=== PATIENT | male | born 1965 | race Two or more races ===

== ENCOUNTER → 2018-06-06 | Outpatient (CLI) | payer OTHER | LOC: M PAIN 13:30 | DX: M96.1 Postlaminectomy syndrome, not elsewhere classified (principal); E11.9 Type 2 diabetes mellitus without complications; E78.00 Pure hypercholesterolemia, unspecified; K21.9 Gastro-esophageal reflux disease without esophagitis; J30.9 Allergic rhinitis, unspecified; Z79.4 Long term (current) use of insulin; Z79.899 Other long term (current) drug therapy; Z87.891 Personal history of nicotine dependence; Z98.84 Bariatric surgery status | CPT/HCPCS: G0463 ==

== ENCOUNTER → 2018-07-04 | Outpatient (CLI) | payer OTHER | LOC: M PAIN 14:45 | DX: M96.1 Postlaminectomy syndrome, not elsewhere classified (principal); E11.9 Type 2 diabetes mellitus without complications; E78.00 Pure hypercholesterolemia, unspecified; K21.9 Gastro-esophageal reflux disease without esophagitis; E66.01 Morbid (severe) obesity due to excess calories; Z68.43 Body mass index [BMI] 50.0-59.9, adult; Z79.4 Long term (current) use of insulin; Z79.899 Other long term (current) drug therapy; Z87.891 Personal history of nicotine dependence; Z98.84 Bariatric surgery status | CPT/HCPCS: G0463 ==

== ENCOUNTER → 2018-10-20 | Outpatient (CLI) | payer OTHER ==
--- NOTE | 2018-11-05 23:28 | ECWPNPC ---
PATIENT NAME: BETZAIDA PAZ : 1965 GENDER: MALE VISIT DATE: 10/20/2018 DISCHARGE DATE: 10/20/18 1433 VISIT LOCKED DATE TIME: PHYSICIAN: DILCIA BURGER RESOURCE: DILCIA BURGER REASON FOR APPOINTMENT 1. 2 MONTHS HISTORY OF PRESENT ILLNESS HISTORY OF PRESENT ILLNESS: HERE FOR F/U OF CHRONIC LOW BACK PAIN AND LEFT THIGH PAIN.RATING PAIN VAS 4/10.FINDS CURRENT PAIN MEDICATION EFFECTIVE AT REDUCING PAIN AND KEEPING HIM COMFORTABLE.DESCRIBES PAIN CONSTANT ACHING LOW BACK PAIN WITH INTERMITTENT LEFT LEG PAIN. PAIN THE PATIENT DESCRIBES THE PAIN... THE PATIENT DESCRIBES THE PAIN... FALL RISK SCREENING: SCREENING : NO FALLS IN THE PAST YEAR. CURRENT MEDICATIONS TAKING OMEPRAZOLE 40 MG CAPSULE DELAYED RELEASE 1 CAPSULE ORALLY ONCE A DAY TAKING TOUJEO SOLOSTAR 300 UNIT/ML SOLUTION PEN-INJECTOR 40-50 UNITS SUBCUTANEOUS DIRECTED TAKING BARIATRIC FUSION - TABLET CHEWABLE ORALLY BID TAKING COLACE 100 MG CAPSULE 1 CAPSULE NEEDED ORALLY BID TAKING NORCO 10-325 MG TABLET 1 TABLET NEEDED ORALLY EVERY 6 HRS MDD4 #100 TAB SHOULD LAST 30 DAYS NOT-TAKING BENICAR 40 MG TABLET 1 TABLET ORALLY ONCE A DAY NOT-TAKING COLESTID 1 GM TABLET 2 TABLETS ORALLY ONCE A DAY NOT-TAKING AMLODIPINE BESYLATE 5 MG TABLET 1 TABLET ORALLY ONCE A DAY NOT-TAKING VENTOLIN HFA 108 (90 BASE) MCG/ACT AEROSOL SOLUTION 2 PUFFS NEEDED INHALATION EVERY 4 HRS NOT-TAKING DIFLUCAN 150 MG TABLET 1 TABLET ORALLY 1 TIME A WEEK NOT-TAKING METOPROLOL TARTRATE 100 MG TABLET 1 TABLET WITH FOOD ORALLY TWICE A DAY NOT-TAKING NYSTATIN [id number] UNIT/GM CREAM 1 APPLICATION TO AFFECTED AREA EXTERNALLY TWICE A DAY NOT-TAKING HYDROCHLOROTHIAZIDE 25 MG TABLET 1 TABLET IN THE MORNING ORALLY ONCE A DAY NOT-TAKING ATORVASTATIN CALCIUM 40 MG TABLET 1 TABLET ORALLY ONCE A DAY NOT-TAKING IBUPROFEN 600 MG TABLET 1 TABLET WITH FOOD OR MILK ORALLY THREE TIMES A DAY NOT-TAKING SENEXON-S 8.6-50 MG TABLET 1 TABLET IN THE EVENING NEEDED ORALLY ONCE A DAY NOT-TAKING ALOGLIPTIN-METFORMIN HCL 12.5-1000 MG TABLET 1 TABLET ORALLY TWICE A DAY NOT-TAKING HUMALOG MIX 75/25 (75-25) 100 UNIT/ML SUSPENSION 30 UNITS SUBCUTANEOUS NOT-TAKING GEMFIBROZIL 600 MG TABLET 1 TABLET ORALLY TWICE A DAY NOT-TAKING LOSARTAN POTASSIUM 100 MG TABLET 1 TABLET ORALLY ONCE A DAY NOT-TAKING SENNA 8.6 MG CAPSULE 2 CAPSULES AT BEDTIME NEEDED ORALLY ONCE A DAY NOT-TAKING MULTIVITAMIN ADULT - TABLET ORALLY 2X DAILY NOT-TAKING CALCIUM 600 + D 600-200 MG-UNIT TABLET 1 TABLET WITH A MEAL ORALLY ONCE A DAY NOT-TAKING DIFLUCAN 200 MG TABLET 1 TABLET ORALLY ONCE A DAY MEDICATION LIST REVIEWED AND RECONCILED WITH THE PATIENT PAST MEDICAL HISTORY DIABETES MELLITUS WITHOUT MENTION OF COMPLICATIONS LUMBAGO PURE HYERCHOLESTEROLEMIA BPH ESOPHAGEAL REFLUX CONSTIPATION MORBID OBESITY POST SURGERY BACK PAIN [facility] SURGICAL HISTORY BACK SURGERY BARIATRIC SURGERY 12/2017 FAMILY HISTORY FATHER: , DIAGNOSED WITH HEART DISEASE MOTHER: , DIAGNOSED WITH CANCER 2 SISTER(S) - HEALTHY. 2DAUGHTER(S) - HEALTHY. 1 SISTER - COPD, ASTHMA, DM. SOCIAL HISTORY GENERAL: TOBACCO USE ARE YOU A:FORMER SMOKER HOW LONG HAS IT BEEN SINCE YOU LAST SMOKED?1-5 YEARS ALCOHOL SCREENING DID YOU HAVE A DRINK CONTAINING ALCOHOL IN THE PAST YEAR?NO POINTS0 INTERPRETATIONNEGATIVE RECREATIONAL DRUG USE DRUG USE?NO CAFFEINE CAFFEINE USE?YES HOW OFTEN AND HOW MUCH? DIET SODA SEXUAL HX HAD SEX IN THE LAST 12 MONTHS (VAGINAL, ORAL, OR ANAL)?YES WITHWOMEN ONLY HAVE YOU EVER HAD AN STD?NO LANGUAGE LANGUAGES SPOKEN:WOLOF LEARNING BARRIERS / SPECIAL NEEDS BARRIERS TO LEARNING?NO HEARING IMPAIRED?NO VISION IMPAIRED?NO COGNITIVELY IMPAIRED?NO READINESS TO LEARN?YES LEARNING PREFERENCES?NO LEARNING CAPABILITIES PRESENT?YES EMOTIONAL BARRIERS?NO SPECIAL DEVICES?NO SPACE OPERATIONS NEEDED?NO OCCUPATION: DISABLED. MARITAL STATUS: SINGLE. PAIN CLINIC PFS, CLERGY, PUBLIC HEALTH REFERRALS HAS THE PATIENT BEEN EDUCATED REGARDING HIS/HER PLAN OF CARE?YES HAS THE PATIENT BEEN EDUCATED REGARDING PAIN, THE RISK FOR PAIN, THE IMPORTANCE OF EFFECTIVE PAIN MANAGEMENT, AND THE PAIN ASSESSMENT PROCESS?YES ADVANCE DIRECTIVE ADVANCE DIRECTIVE DISCUSSED WITH PATIENT:YES PT HAS NO ADVANCED DIRECTIVES. DECLINED INFORMATION AT THIS TIME. REVIEWED WITH PATIENT 06/06/18 4405 JSREVIEWED WITH PATIENT 07/04/18 1522 LAS. HOSPITALIZATION/MAJOR DIAGNOSTIC PROCEDURE SURGERY RELATED REVIEW OF SYSTEMS REVIEWED BY: PROVIDER: DILCIA VÁZQUEZ . CONSTITUTIONAL: ANY CHANGE IN YOUR MEDICAL CONDITION? NO . CHILLS NO . FEVER NO . INFECTION: DO YOU HAVE NEW INFECTIONS? NO . DO YOU HAVE HISTORY OF MRSA? NO . MUSCULOSKELETAL: ANY NEW PATTERNS OF PAIN OR NUMBNESS? YES, LBP WORSE IN AM . GASTROENTEROLOGY: ANY NEW CHANGE IN BOWEL CONTROL? NO . GENITOURINARY: ANY NEW CHANGE IN BLADDER CONTROL? NO . IS THERE A CHANCE YOU COULD BE ? NO . HEMATOLOGY/LYMPH: DO YOU TAKE ANY BLOOD THINNERS? (FOR EXAMPLE- COUMADIN, PLAVIX, AGGRENOX, PLATEL, PRADAXA, OR XARELTO) NO . WHEN WAS YOUR LAST DOSE? DATE: TIME: . NEUROLOGY: HAVE YOU FALLEN IN THE PAST 12 MONTHS? NO . ANY NEW EXTREMITY NUMBNESS OR WEAKNESS? NO . CARDIOLOGY: DO YOU HAVE A PACEMAKER OR DEFIBRILLATOR? NO . RESPIRATORY: HAVE YOU BEEN SICK IN THE PAST WEEK? YES, URI . FEVER NO, BUT DOES GET THE CHILLS . FLU LIKE SYMPTOMS? NO . COUGH YES, NON-PRODUCTIVE . INTEGUMENTARY: DO YOU HAVE ANY RASHES OR OPEN SORES? YES, SORE IN MOUTH . ALLERGIC/IMMUNO: ARE YOU ALLERGIC TO IV DYE? NO . ANY NEW ALLERGIES? NO . PSYCHIATRIC: DO YOU HAVE THOUGHTS OF HURTING YOURSELF OR SOMEONE ELSE? NO . ARE YOU ABUSED, NEGLECTED, OR IN AN UNSAFE ENVIRONMENT? NO . ENDOCRINOLOGY: ARE YOU DIABETIC? YES . OTHER: DO YOU NEED ANY PRESCRIPTIONS? NO . IF YES, PLEASE LIST: ____ . ANY NEW PROBLEMS WITH YOUR MEDICATIONS? NO . WHEN DID YOU LAST EAT? ____ . WHEN DID YOU LAST DRINK? ____ . WHAT DID YOU LAST DRINK? ____ . NAME OF PERSON DRIVING YOU HOME? ____ . DO YOU HAVE ANY OTHER QUESTIONS OR CONCERNS NO . VITAL SIGNS WT 384.2 LBS, HT 72 IN, BMI 52.10 INDEX, BP 169/84 MM HG, HR 74 /MIN, RR 18 /MIN, TEMP 97.7 F, OXYGEN SAT % 96%, NA INITIALS SC 13:44, REVIEWED BY: EM. EXAMINATION GENERAL EXAMINATION: GENERAL APPEARANCE:AWAKE,ALERT ,PLEAASANT . PSYCHAFFECT NORMAL . LUNGS:LUNG SMITH ARE CLEAR TO AUSCULTATION BILATERALLY. GOOD MOVEMENT OF AIR . HEART:S1, S2 IN A REGULAR RATE AND RHYTHM. NO SIGNIFICANT MURMURS, RUBS OR GALLOPS NOTED . ASSESSMENTS POST LAMINECTOMY SYNDROME - M96.1 (PRIMARY) TREATMENT POST LAMINECTOMY SYNDROME CONTINUE NORCO TABLET, 10-325 MG, 1 TABLET NEEDED, ORALLY, EVERY 6 HRS MDD4 #100 TAB SHOULD LAST 30 DAYS NOTES: [employer]STOP REGISTRY REVIEWED AND DEMONSTRATES COMPLLIANCE. (REF # [id number] ) BRINGS IN MEDICATIONS WHICH IS APPROPRIATE FOR WHAT WAS DISPENSED. RECENT URINE TOXICOLOGY REVIEWED. NO UNAUTHORIZED MEDICATIONS. NO ILLICIT SUBSTANCES AND PRESCRIBED MEDICATIONS WERE PRESENT. , RISKS AND BENEFITS OF NARCOTIC/OPIOD MEDICATIONS WERE REVIEWED WITH PATIENT - THIS INCLUDES BUT IS NOT LIMITED TO RISK OF DEPENDANCE/DEVELOPMENT OF ADDICTION, MOOD DISTURBANCE AND DEPRESSION, OSTEOPOROSIS, HORMONAL AND LABIDAL CHANGES, RESPIRATORY DEPRESSION AND . PATIENT IS ADVISED NOT TO DRIVE OR DRINK ALCOHOL WHILE ON THESE MEDICATIONS. PROCEDURE CODES FA211 ESTABILISHED PATIENT [facility] CHARGE DISPOSITION & COMMUNICATION FOLLOW UP 3 MONTHS ELECTRONICALLY SIGNED BY GURPREET GOLDSTEIN ON 11/04/2018 AT 09:32 AM EST DISCLAIMER : THIS IS A VISIT SUMMARY EXTRACTED FROM THE [employer] CHART. IT IS NOT A COPY OF THE [employer] PROGRESS NOTE. MTDD
== END ==
LOC: M PAIN 13:15
PROVIDERS: ATTEND Nurse Practitioner Family
DX: M96.1 Postlaminectomy syndrome, not elsewhere classified (principal); E11.9 Type 2 diabetes mellitus without complications; E78.00 Pure hypercholesterolemia, unspecified; K21.9 Gastro-esophageal reflux disease without esophagitis; E66.01 Morbid (severe) obesity due to excess calories; Z68.43 Body mass index [BMI] 50.0-59.9, adult; Z79.4 Long term (current) use of insulin; Z79.899 Other long term (current) drug therapy; Z87.891 Personal history of nicotine dependence; Z98.84 Bariatric surgery status

== ENCOUNTER → 2018-12-13 | Outpatient (CLI) | payer OTHER | LOC: M PAIN 13:15 | PROVIDERS: ATTEND Nurse Practitioner Family | DX: M96.1 Postlaminectomy syndrome, not elsewhere classified (principal); Z53.8 Procedure and treatment not carried out for other reasons ==

== ENCOUNTER → 2019-12-14 | Outpatient (REF) | payer OTHER | LOC: M LAB REF 14:48 | PROVIDERS: ATTEND Plastic Surgery Surgery of the Hand | DX: T14.8XXA Other injury of unspecified body region, initial encounter (principal); W18.30XA Fall on same level, unspecified, initial encounter; Y92.9 Unspecified place or not applicable ==

== ENCOUNTER → 2020-04-11 | Outpatient (REF) | payer OTHER | LOC: M LAB REF 13:13 | PROVIDERS: ATTEND Physician Assistant | DX: E11.621 Type 2 diabetes mellitus with foot ulcer (principal); L97.512 Non-pressure chronic ulcer of other part of right foot with fat layer exposed ==

== ENCOUNTER 2022-07-14 12:19 | Inpatient (IN) | payer OTHER ==
[2022-07-14 14:00] VITALS: BP 145/72
[2022-07-14] MEDS ORDERED: ACETAMINOPHEN TAB 650MG DOSE (2X325MG) PO PRN (14:10)
[2022-07-14] MEDS ORDERED: GLUCOSE 4GM CHEW TABLET PO PRN (14:20)
[2022-07-14] MEDS ORDERED: GLUCAGON INJ 1MG VIAL SC PRN (14:20)
[2022-07-14] MEDS ORDERED: DEXTROSE 50% 50 ML SYRINGE IV PRN (14:20)
[2022-07-14 14:50] LABS: HEMATOCRIT 37.3 % (42.0-52.0); MEAN CORPUSCULAR HEMOGLOBIN 27.5 pg (27.0-33.0); MEAN CORPUSCULAR HGB CONC 32.2 g/dl (32.0-36.5); MEAN CORPUSCULAR VOLUME 85.4 fl (80.0-96.0); PLATELET COUNT, AUTOMATED 459 10^3/uL (150-450); RED BLOOD COUNT 4.37 10^6/uL (4.30-6.10); WHITE BLOOD COUNT 11.5 10^3/uL (4.0-10.0)
[2022-07-14] MEDS ORDERED: ROSU10TA6 PO (14:53)
[2022-07-14] MEDS ORDERED: HYDR-3713 PO (14:53)
[2022-07-14] MEDS ORDERED: LISI40TA4 PO (14:53)
[2022-07-14] MEDS ORDERED: METF-877 PO (14:53)
[2022-07-14] MEDS ORDERED: METF10004 PO (14:53)
[2022-07-14] MEDS ORDERED: GLIP10TA6 PO (14:53)
[2022-07-14] MEDS ORDERED: BASA100I SQ (14:53)
[2022-07-14] MEDS ORDERED: APAP325T4 PO (14:53)
[2022-07-14] MEDS ORDERED: CHLO125TA PO (14:53)
[2022-07-14] MEDS ORDERED: HOME MED LIST COMPLETE! XX SCH (14:55)
[2022-07-14 15:07] LABS: INR 1.06; PROTHROMBIN TIME 14.1 SECONDS (12.5-14.5)
[2022-07-14 15:48] LABS: ALBUMIN 2.6 G/DL (3.2-5.2); ALT/SGPT 42 U/L (7.0-40); BILIRUBIN,TOTAL 0.2 MG/DL (0.3-1.2); BLOOD UREA NITROGEN 24 MG/DL (9-23); CALCIUM LEVEL 8.4 MG/DL (8.5-10.1); CARBON DIOXIDE LEVEL 24 MMOL/L (20-31); CHLORIDE LEVEL 103 MMOL/L (98-107); CREATININE FOR GFR 0.73 MG/DL (0.70-1.30); GLOMERULAR FILTRATION RATE > 60.0 (>56); GLUCOSE, FASTING 206 MG/DL (60-100); POTASSIUM SERUM 4.1 MMOL/L (3.5-5.1); SODIUM LEVEL 138 MMOL/L (136-145); TOTAL PROTEIN 7.3 G/DL
[2022-07-14 17:18] LABS: HEMOGLOBIN A1c 7.1 % (4.0-6.0)
[2022-07-14] MEDS: PIPERACILLIN/TAZOBACTAM SOD 3.375 GM in D5W MINI-BAG PLUS 50 ML IV SCH ×2 (17:41→21:48)
[2022-07-14] MEDS: INSULIN LISPRO (NovoLOG) PER UNIT SC SCH ×2 (17:42→20:25)
[2022-07-14] MEDS: NS 1,000 ML IV SCH (19:14)
[2022-07-14 20:00] VITALS: BP 108/56
[2022-07-14] MEDS: LEVEMIR (INSULIN DETEMIR) 1 UNITS/0.01ML SC SCH (21:49)
[2022-07-15] VITALS: BP 117/67
[2022-07-15] MEDS: PIPERACILLIN/TAZOBACTAM SOD 3.375 GM in D5W MINI-BAG PLUS 50 ML IV SCH ×4 (03:19→21:27)
[2022-07-15 04:00] VITALS: BP 110/62
[2022-07-15 06:37] LABS: HEMATOCRIT 33.3 % (42.0-52.0); HEMOGLOBIN 10.8 g/dl (13.5-17.5); MEAN CORPUSCULAR HEMOGLOBIN 28.1 pg (27.0-33.0); MEAN CORPUSCULAR HGB CONC 32.4 g/dl (32.0-36.5); MEAN CORPUSCULAR VOLUME 86.5 fl (80.0-96.0); PLATELET COUNT, AUTOMATED 365 10^3/uL (150-450); RED BLOOD COUNT 3.85 10^6/uL (4.30-6.10); WHITE BLOOD COUNT 8.2 10^3/uL (4.0-10.0)
[2022-07-15 07:25] LABS: BLOOD UREA NITROGEN 20 MG/DL (9-23); CALCIUM LEVEL 8.2 MG/DL (8.5-10.1); CARBON DIOXIDE LEVEL 27 MMOL/L (20-31); CHLORIDE LEVEL 104 MMOL/L (98-107); CREATININE FOR GFR 0.81 MG/DL (0.70-1.30); GLOMERULAR FILTRATION RATE > 60.0 (>56); GLUCOSE, FASTING 141 MG/DL (60-100); POTASSIUM SERUM 4.2 MMOL/L (3.5-5.1); SODIUM LEVEL 140 MMOL/L (136-145)
[2022-07-15 08:16] VITALS: BP 125/72
[2022-07-15] MEDS: INSULIN LISPRO (NovoLOG) PER UNIT SC SCH ×4 (08:55→21:28)
[2022-07-15] MEDS: CHLORTHALIDONE 25 MG TAB PO SCH (08:56)
[2022-07-15] MEDS: NS 1,000 ML IV SCH (08:56)
[2022-07-15] MEDS: ROSUVASTATIN 10 MG TAB (CRESTOR) PO SCH (08:56)
[2022-07-15] MEDS: LEVEMIR (INSULIN DETEMIR) 1 UNITS/0.01ML SC SCH ×2 (08:56→21:28)
[2022-07-15] MEDS: lisinopriL 40MG TAB PO SCH (08:56)
[2022-07-15 12:00] VITALS: BP 126/72
[2022-07-15 16:00] VITALS: BP 105/55
[2022-07-15 20:00] VITALS: BP 114/59
[2022-07-16 00:40] VITALS: BP 120/67
[2022-07-16] MEDS: NS 1,000 ML IV SCH ×3 (02:37→20:39)
[2022-07-16] MEDS: PIPERACILLIN/TAZOBACTAM SOD 3.375 GM in D5W MINI-BAG PLUS 50 ML IV SCH ×2 (03:53→10:20)
[2022-07-16 04:00] VITALS: BP 109/56
[2022-07-16 05:40] LABS: HEMATOCRIT 36.1 % (42.0-52.0); HEMOGLOBIN 11.4 g/dl (13.5-17.5); MEAN CORPUSCULAR HEMOGLOBIN 27.5 pg (27.0-33.0); MEAN CORPUSCULAR HGB CONC 31.6 g/dl (32.0-36.5); PLATELET COUNT, AUTOMATED 416 10^3/uL (150-450); RED BLOOD COUNT 4.15 10^6/uL (4.30-6.10)
[2022-07-16 07:05] LABS: BLOOD UREA NITROGEN 15 MG/DL (9-23); CARBON DIOXIDE LEVEL 30 MMOL/L (20-31); CHLORIDE LEVEL 105 MMOL/L (98-107); CREATININE FOR GFR 0.69 MG/DL (0.70-1.30); GLOMERULAR FILTRATION RATE > 60.0 (>56); GLUCOSE, FASTING 186 MG/DL (60-100); SODIUM LEVEL 141 MMOL/L (136-145)
[2022-07-16 08:00] VITALS: BP 134/64
[2022-07-16] MEDS: lisinopriL 40MG TAB PO SCH (08:24)
[2022-07-16] MEDS: CHLORTHALIDONE 25 MG TAB PO SCH (08:24)
[2022-07-16] MEDS: ROSUVASTATIN 10 MG TAB (CRESTOR) PO SCH (08:24)
[2022-07-16] MEDS: NORCO, ANEXSIA 5/325MG TABLET (HYDROcodone/ACETAMINOPHEN) PO PRN ×2 (08:30→21:55)
[2022-07-16] MEDS: ENOXAPARIN 40MG/0.4ML SYRINGE (J1650 PER 10MG) SC SCH (08:31)
[2022-07-16] MEDS: LEVEMIR (INSULIN DETEMIR) 1 UNITS/0.01ML SC SCH ×2 (08:32→21:53)
[2022-07-16] MEDS: INSULIN LISPRO (NovoLOG) PER UNIT SC SCH ×4 (08:33→21:00)
[2022-07-16] MEDS ORDERED: LEVEMIR (INSULIN DETEMIR) 1 UNITS/0.01ML SC ONE (11:50)
[2022-07-16 12:00] VITALS: BP 105/58
[2022-07-16 12:39] LABS: ERYTHROCYTE SEDIMENTATION RATE 92 mm/hr (0-20)
[2022-07-16] MEDS: cefTRIAXone SOD 1 GM in D5W MINI-BAG PLUS 50 ML IV SCH (14:44)
[2022-07-16 16:00] VITALS: BP 103/59
[2022-07-16 20:53] VITALS: BP 135/72
[2022-07-17] MEDS: NS 1,000 ML IV SCH (05:03)
[2022-07-17 06:37] VITALS: BP 110/62
[2022-07-17] MEDS: INSULIN LISPRO (NovoLOG) PER UNIT SC SCH ×4 (07:30→20:35)
[2022-07-17 08:53] LABS: HEMATOCRIT 38.1 % (42.0-52.0); MEAN CORPUSCULAR HEMOGLOBIN 27.7 pg (27.0-33.0); MEAN CORPUSCULAR HGB CONC 31.5 g/dl (32.0-36.5); PLATELET COUNT, AUTOMATED 424 10^3/uL (150-450); RED BLOOD COUNT 4.33 10^6/uL (4.30-6.10); WHITE BLOOD COUNT 8.3 10^3/uL (4.0-10.0)
[2022-07-17 09:18] LABS: BLOOD UREA NITROGEN 11 MG/DL (9-23); CALCIUM LEVEL 8.1 MG/DL (8.5-10.1); CARBON DIOXIDE LEVEL 29 MMOL/L (20-31); CHLORIDE LEVEL 104 MMOL/L (98-107); CREATININE FOR GFR 0.63 MG/DL (0.70-1.30); GLOMERULAR FILTRATION RATE > 60.0 (>56); GLUCOSE, FASTING 129 MG/DL (60-100); POTASSIUM SERUM 4.2 MMOL/L (3.5-5.1); SODIUM LEVEL 140 MMOL/L (136-145)
[2022-07-17] MEDS: LEVEMIR (INSULIN DETEMIR) 1 UNITS/0.01ML SC SCH ×2 (10:04→21:08)
[2022-07-17] MEDS: ROSUVASTATIN 10 MG TAB (CRESTOR) PO SCH (10:04)
[2022-07-17] MEDS: ENOXAPARIN 40MG/0.4ML SYRINGE (J1650 PER 10MG) SC SCH (10:04)
[2022-07-17] MEDS: lisinopriL 40MG TAB PO SCH (10:05)
[2022-07-17] MEDS: CHLORTHALIDONE 25 MG TAB PO SCH (10:10)
[2022-07-17] MEDS: NORCO, ANEXSIA 5/325MG TABLET (HYDROcodone/ACETAMINOPHEN) PO PRN ×2 (10:10→21:07)
[2022-07-17] MEDS: cefTRIAXone SOD 1 GM in D5W MINI-BAG PLUS 50 ML IV SCH (13:50)
[2022-07-17 20:05] VITALS: BP 125/64
[2022-07-18 05:28] VITALS: BP 111/55
[2022-07-18 07:40] LABS: HEMOGLOBIN 11.5 g/dl (13.5-17.5); MEAN CORPUSCULAR HEMOGLOBIN 27.8 pg (27.0-33.0); MEAN CORPUSCULAR HGB CONC 31.9 g/dl (32.0-36.5); MEAN CORPUSCULAR VOLUME 87.2 fl (80.0-96.0); PLATELET COUNT, AUTOMATED 374 10^3/uL (150-450); RED BLOOD COUNT 4.13 10^6/uL (4.30-6.10)
[2022-07-18] MEDS ORDERED: LEVO1TAB39 PO (08:09)
[2022-07-18] MEDS ORDERED: PROB1CAP10 PO (08:09)
[2022-07-18] MEDS: lisinopriL 40MG TAB PO SCH (08:09)
[2022-07-18] MEDS: ROSUVASTATIN 10 MG TAB (CRESTOR) PO SCH (08:09)
[2022-07-18] MEDS: CHLORTHALIDONE 25 MG TAB PO SCH (08:09)
[2022-07-18] MEDS ORDERED: ACET1TAB55 PO (08:09)
[2022-07-18] MEDS: ENOXAPARIN 40MG/0.4ML SYRINGE (J1650 PER 10MG) SC SCH (08:09)
[2022-07-18] MEDS: LEVEMIR (INSULIN DETEMIR) 1 UNITS/0.01ML SC SCH (08:10)
[2022-07-18] MEDS: INSULIN LISPRO (NovoLOG) PER UNIT SC SCH (08:10)
[2022-07-18] MEDS: NORCO, ANEXSIA 5/325MG TABLET (HYDROcodone/ACETAMINOPHEN) PO PRN (08:12)
[2022-07-18 08:17] LABS: BLOOD UREA NITROGEN 10 MG/DL (9-23); CALCIUM LEVEL 8.8 MG/DL (8.5-10.1); CARBON DIOXIDE LEVEL 31 MMOL/L (20-31); CHLORIDE LEVEL 102 MMOL/L (98-107); CREATININE FOR GFR 0.65 MG/DL (0.70-1.30); GLOMERULAR FILTRATION RATE > 60.0 (>56); GLUCOSE, FASTING 161 MG/DL (60-100); POTASSIUM SERUM 4.1 MMOL/L (3.5-5.1); SODIUM LEVEL 139 MMOL/L (136-145)
== END 2022-07-18 12:00 | disposition home or self-care (01) | DRG 380 ==
LOC: M PCU 13:31 → M MS5PR 07-16 18:45
PROVIDERS: ADMIT Internal Medicine; ATTEND Internal Medicine
DX: E11.621 Type 2 diabetes mellitus with foot ulcer (principal); E11.42 Type 2 diabetes mellitus with diabetic polyneuropathy; L03.115 Cellulitis of right lower limb; L97.518 Non-pressure chronic ulcer of other part of right foot with other specified severity; E66.01 Morbid (severe) obesity due to excess calories; E11.65 Type 2 diabetes mellitus with hyperglycemia; Z68.42 Body mass index [BMI] 45.0-49.9, adult; E11.622 Type 2 diabetes mellitus with other skin ulcer; M54.50 Low back pain, unspecified; B95.5 Unspecified streptococcus as the cause of diseases classified elsewhere; E78.00 Pure hypercholesterolemia, unspecified; L02.611 Cutaneous abscess of right foot; N40.0 Benign prostatic hyperplasia without lower urinary tract symptoms; L97.316 Non-pressure chronic ulcer of right ankle with bone involvement without evidence of necrosis; K21.9 Gastro-esophageal reflux disease without esophagitis; G89.29 Other chronic pain; I10 Essential (primary) hypertension; Z87.891 Personal history of nicotine dependence; Z79.4 Long term (current) use of insulin; Z79.899 Other long term (current) drug therapy; Z91.199 Patient's noncompliance with other medical treatment and regimen due to unspecified reason

== ENCOUNTER → 2024-04-28 | Outpatient (REF) | payer OTHER ==
[~2024-04-28] MED LIST: ACET1TAB55 PO; APAP325T4 PO; BASA100I SQ; CHLO125TA PO; GLIP10TA6 PO; HYDR-3713 PO; LEVO1TAB39 PO; LISI40TA4 PO; METF-877 PO; METF10004 PO; PROB1CAP10 PO; ROSU10TA61 PO
== END ==
LOC: EEVIPCON 16:12 → M LAB REF 16:12
PROVIDERS: ATTEND Podiatrist Foot & Ankle Surgery
DX: L03.116 Cellulitis of left lower limb (principal)

== ENCOUNTER → 2024-05-02 | Outpatient (REF) | payer OTHER | LOC: M LAB REF 13:10 | PROVIDERS: ATTEND Podiatrist Foot & Ankle Surgery | DX: M86.171 Other acute osteomyelitis, right ankle and foot (principal); I96 Gangrene, not elsewhere classified ==

== ENCOUNTER 2024-05-26 11:03 | Inpatient (IN) | payer OTHER ==
[~2024-05-26] VITALS: Ht 182.9 cm; Wt 162.3 kg
[~2024-05-26 11:03] MED LIST changes: +GLIP10TA15 PO; -GLIP10TA6 PO
[2024-05-26 12:08] LABS: VENOUS BASE EXCESS -5.1 (-2.0-2.0); VENOUS HCO3 20.3 MMOL/L (23.0-27.0); VENOUS O2 SATURATION 65.5 % (60.0-80.0); VENOUS PARTIAL PRESSURE CO2 39.3 mmHg (38.0-50.0); VENOUS PARTIAL PRESSURE O2 35.3 mmHg (30.0-50.0); VENOUS PH 7.332 UNITS (7.330-7.430); VENOUS STANDARD HCO3 19.7 MMOL/L; VENOUS TOTAL CO2 21.6 MMOL/L (24.0-28.0)
[2024-05-26 12:13] LABS: BASO # 0.1 10^3/uL (0.0-0.2); BASO % 0.4 % (0.0-1.0); EOS % 0.3 % (0.0-3.0); HEMATOCRIT 31.8 % (42.0-52.0); HEMOGLOBIN 10.5 g/dl (13.5-17.5); LYMPH # 0.6 10^3/uL (1.5-5.0); LYMPH % 3.9 % (24.0-44.0); MEAN CORPUSCULAR HEMOGLOBIN 26.8 pg (27.0-33.0); MEAN CORPUSCULAR VOLUME 81.1 fl (80.0-96.0); MONO # 1.1 10^3/uL (0.0-0.8); MONO % 7.6 % (2.0-8.0); NEUTROPHILS # 12.3 10^3/uL (1.5-8.5); PLATELET COUNT, AUTOMATED 311 10^3/uL (150-450); RED BLOOD COUNT 3.92 10^6/uL (4.30-6.10); WHITE BLOOD COUNT 14.1 10^3/uL (4.0-10.0)
[2024-05-26 12:25] LABS: INR 1.31; PARTIAL THROMBOPLASTIN TIME 30.9 SECONDS (24.8-34.2); PROTHROMBIN TIME 15.9 SECONDS (12.5-14.5)
[2024-05-26 12:42] LABS: CK-MB VALUE MASS 1.7 NG/ML (<3.6)
[2024-05-26 12:43] LABS: AMYLASE 24 U/L (30-118)
[2024-05-26 12:44] LABS: ALBUMIN 2.1 G/DL (3.2-5.2); ALKALINE PHOSPHATASE 79 U/L (46-116); ALT/SGPT 48 U/L (7.0-40); AST/SGOT 63 U/L (<34); BILIRUBIN,DIRECT 0.1 MG/DL (<0.4); BILIRUBIN,TOTAL 0.3 MG/DL (0.3-1.2); BLOOD UREA NITROGEN 35 MG/DL (9-23); CALCIUM LEVEL 8.8 MG/DL (8.5-10.1); CARBON DIOXIDE LEVEL 22 MMOL/L (20-31); CHLORIDE LEVEL 99 MMOL/L (98-107); CPK CREATINE PHOSPHOKINASE 354 U/L (46-171); CREATININE FOR GFR 1.23 MG/DL (0.70-1.30); GLOMERULAR FILTRATION RATE > 60.0 (>56); GLUCOSE, FASTING 356 MG/DL (60-100); MB/CK RELATIVE INDEX 0.48 (< OR =4); POTASSIUM SERUM 4.6 MMOL/L (3.5-5.1); SODIUM LEVEL 127 MMOL/L (136-145); TOTAL PROTEIN 7.3 G/DL (5.7-8.2)
[2024-05-26 12:51] LABS: PROCALCITONIN 15.82 ng/ml
[2024-05-26] MEDS: PIPERACILLIN/TAZOBACTAM SOD 4.5 GM in D5W MINI-BAG PLUS 50 ML IV ONE (13:11)
[2024-05-26] MEDS ORDERED: ISOVUE-370 76% 100ML VIAL As Ordered ONE (14:32)
[2024-05-26] MEDS ORDERED: OMEP40CA5 PO (15:36)
[2024-05-26] MEDS ORDERED: LORA-1041 PO (15:36)
[2024-05-26] MEDS ORDERED: FERR1TAB8 PO (15:37)
[2024-05-26] MEDS ORDERED: HOME MED LIST COMPLETE! XX SCH (15:40)
[2024-05-26] MEDS ORDERED: GLUCAGON INJ 1MG VIAL SC PRN (16:00)
[2024-05-26] MEDS ORDERED: DEXTROSE 50% 50ML SYRINGE IV PRN (16:00)
[2024-05-26] MEDS ORDERED: GLUCOSE 4 GM CHEW PO PRN (16:00)
[2024-05-26] MEDS: VANCOMYCIN 2,000 MG/400 ML IV BAG *LOAD IV ONE (17:09)
[2024-05-26 17:50] VITALS: BP 115/80; TEMP 97.3; O2SAT 99
[2024-05-26 17:55] VITALS: O2SAT 99
[2024-05-26] MEDS: ACETAMINOPHEN TAB 650MG DOSE (2X325MG) PO PRN (18:24)
[2024-05-26] MEDS: LR 1,000 ML IV SCH (18:24)
[2024-05-26] MEDS: INSULIN LISPRO (NovoLOG) PER UNIT SC SCH (18:33)
[2024-05-26] MEDS: CEFEPIME HCL 2 GM in D5W MINI-BAG PLUS 50 ML IV SCH (19:13)
[2024-05-26 20:00] VITALS: BP 108/62; TEMP 97.7; O2SAT 98
[2024-05-26] MEDS: LEVEMIR (INSULIN DETEMIR) 1 UNITS/0.01ML SC SCH (20:47)
[2024-05-26] MEDS: FERROUS SULFATE 325MG TAB PO SCH (20:47)
[2024-05-26 23:01] VITALS: O2SAT 97
[2024-05-26] MEDS: VANCOMYCIN HCL 1,000 MG, VIAL MATE ADAPTER 1 EACH in D5W 250 ML IV SCH (23:53)
[2024-05-27] VITALS (11 sets, daily range): BP systolic 97–155; BP diastolic 50–82; TEMP 96.8–101.8; O2SAT 93–100
[2024-05-27] MEDS: IBUPROFEN 600MG TAB PO ONE (01:26)
[2024-05-27 06:57] LABS: BASO % 0.5 % (0.0-1.0); EOS % 0.3 % (0.0-3.0); HEMATOCRIT 30.4 % (42.0-52.0); HEMOGLOBIN 9.8 g/dl (13.5-17.5); LYMPH # 0.5 10^3/uL (1.5-5.0); LYMPH % 6.5 % (24.0-44.0); MEAN CORPUSCULAR HEMOGLOBIN 26.6 pg (27.0-33.0); MEAN CORPUSCULAR HGB CONC 32.2 g/dl (32.0-36.5); MEAN CORPUSCULAR VOLUME 82.6 fl (80.0-96.0); MONO % 14.2 % (2.0-8.0); NEUTROPHILS # 5.7 10^3/uL (1.5-8.5); NEUTROPHILS % 77.8 % (36.0-66.0); PLATELET COUNT, AUTOMATED 229 10^3/uL (150-450); RED BLOOD COUNT 3.68 10^6/uL (4.30-6.10); WHITE BLOOD COUNT 7.3 10^3/uL (4.0-10.0)
[2024-05-27 07:22] LABS: BLOOD UREA NITROGEN 36 MG/DL (9-23); CALCIUM LEVEL 8.4 MG/DL (8.5-10.1); CARBON DIOXIDE LEVEL 24 MMOL/L (20-31); CHLORIDE LEVEL 100 MMOL/L (98-107); CREATININE FOR GFR 1.28 MG/DL (0.70-1.30); GLOMERULAR FILTRATION RATE > 60.0 (>56); GLUCOSE, FASTING 221 MG/DL (60-100); MAGNESIUM LEVEL 1.6 MG/DL (1.8-2.4); POTASSIUM SERUM 4.2 MMOL/L (3.5-5.1); SODIUM LEVEL 129 MMOL/L (136-145)
[2024-05-27] MEDS: LORATADINE 10 MG TAB PO SCH (08:35)
[2024-05-27] MEDS: OMEPRAZOLE 20MG CAP PO SCH (08:35)
[2024-05-27] MEDS: ROSUVASTATIN 10 MG TAB (CRESTOR) PO SCH (08:35)
[2024-05-27] MEDS: MAG SULF 1GM/100ML (MAG RUN) 1 GM in IV 1 EA IV SCH (10:20)
[2024-05-27] MEDS: LEVEMIR (INSULIN DETEMIR) 1 UNITS/0.01ML SC STA (12:08)
[2024-05-27] MEDS: INSULIN LISPRO (NovoLOG) PER UNIT SC SCH ×2 (12:09→20:26)
[2024-05-27] MEDS: ENOXAPARIN 40MG/0.4ML SYRINGE (J1650 PER 10MG) SC SCH (12:12)
[2024-05-27] MEDS: VANCOMYCIN 1,250 MG/250 ML IV BAG IV SCH (20:25)
[2024-05-27] MEDS: LEVEMIR (INSULIN DETEMIR) 1 UNITS/0.01ML SC SCH (20:29)
[2024-05-27] MEDS: NS 500 ML IV ONE (23:00)
[2024-05-28] VITALS: BP 114/66; TEMP 100.8; O2SAT 96
[2024-05-28] MEDS: NS 1,000 ML IV ONE (00:22)
[2024-05-28] MEDS: ACETAMINOPHEN *IV* 1,000 MG in IV 1 EA IV ONE (00:22)
[2024-05-28 03:34] LABS: BASO % 0.7 % (0.0-1.0); EOS % 0.5 % (0.0-3.0); HEMOGLOBIN 9.1 g/dl (13.5-17.5); LYMPH # 0.7 10^3/uL (1.5-5.0); LYMPH % 12.3 % (24.0-44.0); MEAN CORPUSCULAR HEMOGLOBIN 26.7 pg (27.0-33.0); MEAN CORPUSCULAR HGB CONC 32.5 g/dl (32.0-36.5); MEAN CORPUSCULAR VOLUME 82.1 fl (80.0-96.0); MONO # 0.7 10^3/uL (0.0-0.8); MONO % 12.2 % (2.0-8.0); NEUTROPHILS # 4.3 10^3/uL (1.5-8.5); NEUTROPHILS % 73.8 % (36.0-66.0); PLATELET COUNT, AUTOMATED 256 10^3/uL (150-450); RED BLOOD COUNT 3.41 10^6/uL (4.30-6.10); WHITE BLOOD COUNT 5.8 10^3/uL (4.0-10.0)
[2024-05-28 04:00] VITALS: BP 110/54; TEMP 97; O2SAT 99
[2024-05-28 04:01] LABS: BLOOD UREA NITROGEN 29 MG/DL (9-23); CALCIUM LEVEL 7.7 MG/DL (8.5-10.1); CARBON DIOXIDE LEVEL 24 MMOL/L (20-31); CHLORIDE LEVEL 104 MMOL/L (98-107); CREATININE FOR GFR 1.03 MG/DL (0.70-1.30); GLOMERULAR FILTRATION RATE > 60.0 (>56); GLUCOSE, FASTING 192 MG/DL (60-100); MAGNESIUM LEVEL 1.7 MG/DL (1.8-2.4); POTASSIUM SERUM 3.7 MMOL/L (3.5-5.1); SODIUM LEVEL 133 MMOL/L (136-145)
[2024-05-28 08:00] VITALS: BP 100/73; TEMP 97.3; O2SAT 99
[2024-05-28] MEDS: MAG SULF 1GM/100ML (MAG RUN) 1 GM in IV 1 EA IV ONE (11:45)
[2024-05-28 12:00] VITALS: BP 102/72; TEMP 97.7; O2SAT 97
[2024-05-28 16:00] VITALS: BP 102/63; TEMP 97.7; O2SAT 96
[2024-05-28 20:32] VITALS: BP 104/68; TEMP 97.7; O2SAT 99
[2024-05-29] VITALS: BP 104/67; TEMP 97.5; O2SAT 95
[2024-05-29 04:00] VITALS: BP 103/64; TEMP 97.3; O2SAT 99
[2024-05-29 07:33] LABS: BASO % 0.5 % (0.0-1.0); EOS # 0.1 10^3/uL (0.0-0.5); EOS % 1.2 % (0.0-3.0); HEMATOCRIT 28.1 % (42.0-52.0); HEMOGLOBIN 8.9 g/dl (13.5-17.5); LYMPH # 0.9 10^3/uL (1.5-5.0); LYMPH % 11.8 % (24.0-44.0); MEAN CORPUSCULAR HEMOGLOBIN 26.2 pg (27.0-33.0); MEAN CORPUSCULAR HGB CONC 31.7 g/dl (32.0-36.5); MEAN CORPUSCULAR VOLUME 82.6 fl (80.0-96.0); MONO # 0.7 10^3/uL (0.0-0.8); MONO % 9.4 % (2.0-8.0); NEUTROPHILS % 76.6 % (36.0-66.0); PLATELET COUNT, AUTOMATED 294 10^3/uL (150-450); WHITE BLOOD COUNT 7.8 10^3/uL (4.0-10.0)
[2024-05-29 08:00] VITALS: BP 113/64; TEMP 96.8; O2SAT 97
[2024-05-29 08:02] LABS: VANCOMYCIN LEVEL TROUGH 15.6 UG/ML (10.0-20.0)
[2024-05-29 08:03] LABS: BLOOD UREA NITROGEN 17 MG/DL (9-23); CALCIUM LEVEL 7.7 MG/DL (8.5-10.1); CARBON DIOXIDE LEVEL 26 MMOL/L (20-31); CHLORIDE LEVEL 102 MMOL/L (98-107); CREATININE FOR GFR 0.79 MG/DL (0.70-1.30); GLOMERULAR FILTRATION RATE > 60.0 (>56); GLUCOSE, FASTING 203 MG/DL (60-100); MAGNESIUM LEVEL 1.6 MG/DL (1.8-2.4); POTASSIUM SERUM 3.5 MMOL/L (3.5-5.1); SODIUM LEVEL 133 MMOL/L (136-145)
[2024-05-29] MEDS ORDERED: FLEET ENEMA PR PRN (10:30)
[2024-05-29] MEDS ORDERED: SENOKOT S TAB PO PRN (10:30)
[2024-05-29] MEDS ORDERED: MOM 30ML SUSPENSION UDC PO PRN (10:30)
[2024-05-29] MEDS ORDERED: LACTULOSE 20GM/30ML SYRUP UDC PO PRN (10:30)
[2024-05-29] MEDS: METOCLOPRAMIDE INJ 10MG/2ML VIAL IV ONE (11:14)
[2024-05-29] MEDS: LACTULOSE 20GM/30ML SYRUP UDC PO ONE (11:22)
[2024-05-29] MEDS: KETOROLAC 30 MG/ML 1ML VIAL IV ONE (11:22)
[2024-05-29] MEDS: SENOKOT S TAB PO ONE (11:22)
[2024-05-29] MEDS: FIORICET TAB PO ONE (11:23)
[2024-05-29] MEDS: MIRALAX *UNIT DOSE* 17GM PACKET PO SCH (11:27)
[2024-05-29 12:00] VITALS: BP 115/63; TEMP 97.5; O2SAT 95
[2024-05-29] MEDS: LACTIC ACID 12% LOTION 225 GM BTL TOP SCH (12:04)
[2024-05-29] MEDS: MAG SULF 1GM/100ML (MAG RUN) 1 GM in IV 1 EA IV ONE (12:43)
[2024-05-29 16:00] VITALS: BP 113/64; TEMP 96.8; O2SAT 98
[2024-05-29] MEDS: PIPERACILLIN/TAZOBACTAM SOD 3.375 GM in D5W MINI-BAG PLUS 50 ML IV SCH (17:01)
[2024-05-29] MEDS ORDERED: PROHANCE 279.3MG/ML 15ML VIAL As Ordered ONE (18:23)
[2024-05-29] MEDS ORDERED: PROHANCE 279.3MG/ML 5ML VIAL As Ordered ONE (18:23)
[2024-05-29 20:00] VITALS: BP 127/69; TEMP 97.2; O2SAT 100
[2024-05-29] MEDS: BISACODYL 10MG SUPP PR SCH (20:22)
[2024-05-29] MEDS: LINEZOLID 600MG TABLET (ZYVOX) PO SCH (20:28)
[2024-05-30] VITALS (13 sets, daily range): BP systolic 6–135; BP diastolic 49–94; TEMP 96.6–98.3; O2SAT 97–100
[2024-05-30 06:29] LABS: BASO % 0.4 % (0.0-1.0); EOS # 0.3 10^3/uL (0.0-0.5); EOS % 3.7 % (0.0-3.0); HEMATOCRIT 26.7 % (42.0-52.0); HEMOGLOBIN 8.6 g/dl (13.5-17.5); LYMPH # 1.1 10^3/uL (1.5-5.0); LYMPH % 16.1 % (24.0-44.0); MEAN CORPUSCULAR HEMOGLOBIN 26.8 pg (27.0-33.0); MEAN CORPUSCULAR HGB CONC 32.2 g/dl (32.0-36.5); MEAN CORPUSCULAR VOLUME 83.2 fl (80.0-96.0); MONO # 0.6 10^3/uL (0.0-0.8); MONO % 8.2 % (2.0-8.0); NEUTROPHILS # 4.9 10^3/uL (1.5-8.5); PLATELET COUNT, AUTOMATED 264 10^3/uL (150-450); RED BLOOD COUNT 3.21 10^6/uL (4.30-6.10)
[2024-05-30 06:58] LABS: BLOOD UREA NITROGEN 16 MG/DL (9-23); CALCIUM LEVEL 7.8 MG/DL (8.5-10.1); CARBON DIOXIDE LEVEL 27 MMOL/L (20-31); CHLORIDE LEVEL 102 MMOL/L (98-107); GLOMERULAR FILTRATION RATE > 60.0 (>56); GLUCOSE, FASTING 150 MG/DL (60-100); MAGNESIUM LEVEL 1.6 MG/DL (1.8-2.4); POTASSIUM SERUM 3.4 MMOL/L (3.5-5.1); SODIUM LEVEL 133 MMOL/L (136-145)
[2024-05-30] MEDS: METOCLOPRAMIDE INJ 10MG/2ML VIAL IV ONE (10:07)
[2024-05-30] MEDS: KETOROLAC 30 MG/ML 1ML VIAL IV ONE (10:07)
[2024-05-30] MEDS: ACETAMINOPHEN *IV* 1,000 MG in IV 1 EA IV ONE (10:08)
[2024-05-30] MEDS ORDERED: MIDAZOLAM INJ 2MG/2ML VIAL As Ordered ONE (12:13)
[2024-05-30] MEDS ORDERED: propofoL 200 MG/20 ML VIAL As Ordered ONE (12:13)
[2024-05-30] MEDS ORDERED: fentaNYL 100 MCG/2 ML INJECTION As Ordered ONE (12:13)
[2024-05-30] MEDS: LIDOCAINE 1% MDV 20ML VIAL As Ordered ONE (12:20)
[2024-05-30] MEDS ORDERED: ePHEDrine SULFATE 25 MG/5 ML(5MG/ML) SYRINGE As Ordered ONE (12:27)
[2024-05-30] MEDS ORDERED: PERCOCET 5MG/325MG TAB PO PRN (12:45)
[2024-05-30] MEDS ORDERED: fentaNYL 100 MCG/2 ML INJECTION IV PRN (12:45)
[2024-05-30] MEDS ORDERED: ONDANSETRON 4MG 2ML VIAL IV PRN (12:45)
[2024-05-30] MEDS: NS 1,000 ML IV ONE (14:16)
[2024-05-31 04:10] VITALS: BP 103/56; TEMP 96.8; O2SAT 98
[2024-05-31 08:00] VITALS: BP 104/67; TEMP 97.8; O2SAT 98
[2024-05-31] MEDS: FIORICET TAB PO PRN (08:36)
[2024-05-31 12:00] VITALS: BP 109/69; TEMP 97; O2SAT 97
[2024-05-31] MEDS: LEVEMIR (INSULIN DETEMIR) 1 UNITS/0.01ML SC SCH (22:06)
[2024-05-31 22:18] VITALS: BP 113/53; TEMP 97.5; O2SAT 97
[2024-06-01 04:11] VITALS: BP 115/52; TEMP 97; O2SAT 96
[2024-06-01 08:00] VITALS: BP 124/76; TEMP 97.7; O2SAT 96
[2024-06-01 10:46] LABS: BASO # 0.1 10^3/uL (0.0-0.2); BASO % 0.7 % (0.0-1.0); EOS # 0.3 10^3/uL (0.0-0.5); EOS % 4.7 % (0.0-3.0); HEMATOCRIT 31.7 % (42.0-52.0); HEMOGLOBIN 9.8 g/dl (13.5-17.5); LYMPH # 1.8 10^3/uL (1.5-5.0); LYMPH % 25.1 % (24.0-44.0); MEAN CORPUSCULAR HEMOGLOBIN 26.2 pg (27.0-33.0); MEAN CORPUSCULAR HGB CONC 30.9 g/dl (32.0-36.5); MEAN CORPUSCULAR VOLUME 84.8 fl (80.0-96.0); MONO # 0.5 10^3/uL (0.0-0.8); MONO % 6.3 % (2.0-8.0); NEUTROPHILS # 4.3 10^3/uL (1.5-8.5); NEUTROPHILS % 60.6 % (36.0-66.0); PLATELET COUNT, AUTOMATED 370 10^3/uL (150-450); RED BLOOD COUNT 3.74 10^6/uL (4.30-6.10); WHITE BLOOD COUNT 7.2 10^3/uL (4.0-10.0)
[2024-06-01 10:51] LABS: ERYTHROCYTE SEDIMENTATION RATE 100 mm/hr (0-20)
[2024-06-01 11:24] LABS: PROCALCITONIN 0.47 ng/ml
[2024-06-01 11:44] LABS: BLOOD UREA NITROGEN 8 MG/DL (9-23); CALCIUM LEVEL 8.2 MG/DL (8.5-10.1); CARBON DIOXIDE LEVEL 27 MMOL/L (20-31); CHLORIDE LEVEL 105 MMOL/L (98-107); GLOMERULAR FILTRATION RATE > 60.0 (>56); GLUCOSE, FASTING 288 MG/DL (60-100); POTASSIUM SERUM 3.9 MMOL/L (3.5-5.1); SODIUM LEVEL 136 MMOL/L (136-145)
[2024-06-01 12:00] VITALS: BP 109/61; TEMP 97; O2SAT 97
[2024-06-01 16:00] VITALS: BP 117/70; TEMP 97.5; O2SAT 98
[2024-06-01 20:00] VITALS: BP 138/82; TEMP 98.1; O2SAT 98
[2024-06-02] VITALS: BP 137/79; TEMP 98.1; O2SAT 96
[2024-06-02 03:35] VITALS: BP 108/66; TEMP 97; O2SAT 97
[2024-06-02 06:28] LABS: BASO # 0.1 10^3/uL (0.0-0.2); BASO % 0.8 % (0.0-1.0); EOS # 0.3 10^3/uL (0.0-0.5); EOS % 3.9 % (0.0-3.0); HEMATOCRIT 27.3 % (42.0-52.0); HEMOGLOBIN 8.6 g/dl (13.5-17.5); LYMPH % 30.2 % (24.0-44.0); MEAN CORPUSCULAR HGB CONC 31.5 g/dl (32.0-36.5); MEAN CORPUSCULAR VOLUME 85.6 fl (80.0-96.0); MONO # 0.6 10^3/uL (0.0-0.8); MONO % 8.3 % (2.0-8.0); NEUTROPHILS # 3.5 10^3/uL (1.5-8.5); NEUTROPHILS % 53.2 % (36.0-66.0); PLATELET COUNT, AUTOMATED 324 10^3/uL (150-450); RED BLOOD COUNT 3.19 10^6/uL (4.30-6.10); WHITE BLOOD COUNT 6.6 10^3/uL (4.0-10.0)
[2024-06-02 06:49] LABS: BLOOD UREA NITROGEN 5 MG/DL (9-23); CALCIUM LEVEL 7.9 MG/DL (8.5-10.1); CARBON DIOXIDE LEVEL 31 MMOL/L (20-31); CHLORIDE LEVEL 104 MMOL/L (98-107); CREATININE FOR GFR 0.69 MG/DL (0.70-1.30); GLOMERULAR FILTRATION RATE > 60.0 (>56); GLUCOSE, FASTING 156 MG/DL (60-100); POTASSIUM SERUM 3.7 MMOL/L (3.5-5.1); SODIUM LEVEL 138 MMOL/L (136-145)
[2024-06-02 08:00] VITALS: BP 116/65; TEMP 97.3; O2SAT 98
[2024-06-02] MEDS ORDERED: LINE1TAB6 PO (11:39)
[2024-06-02 12:00] VITALS: BP 138/81; TEMP 97.7; O2SAT 97
== END 2024-06-02 15:51 | disposition home or self-care (01) | DRG 710 ==
LOC: M ED 11:03 → M ED INP 15:58 → M MSPAV 17:46
PROVIDERS: ADMIT Student in an Organized Health Care Education/Training Program; ATTEND General Practice
PROC: 0H9MXZZ Drainage of Right Foot Skin, External Approach (ICD-10-PCS; 2024-05-29)
PROC: 0QBN0ZZ Excision of Right Metatarsal, Open Approach (ICD-10-PCS; principal; 2024-05-30 11:00)
DX: A41.9 Sepsis, unspecified organism (principal); N17.9 Acute kidney failure, unspecified; M86.171 Other acute osteomyelitis, right ankle and foot; E87.1 Hypo-osmolality and hyponatremia; B97.0 Adenovirus as the cause of diseases classified elsewhere; E11.40 Type 2 diabetes mellitus with diabetic neuropathy, unspecified; E11.69 Type 2 diabetes mellitus with other specified complication; E11.65 Type 2 diabetes mellitus with hyperglycemia; E66.01 Morbid (severe) obesity due to excess calories; Z68.42 Body mass index [BMI] 45.0-49.9, adult; E83.42 Hypomagnesemia; I10 Essential (primary) hypertension; E78.5 Hyperlipidemia, unspecified; D50.9 Iron deficiency anemia, unspecified; K21.9 Gastro-esophageal reflux disease without esophagitis; G89.29 Other chronic pain; M54.9 Dorsalgia, unspecified; Z89.411 Acquired absence of right great toe; J06.9 Acute upper respiratory infection, unspecified; R51.9 Headache, unspecified; I87.2 Venous insufficiency (chronic) (peripheral); L30.8 Other specified dermatitis; K59.00 Constipation, unspecified; B95.61 Methicillin susceptible Staphylococcus aureus infection as the cause of diseases classified elsewhere; B95.4 Other streptococcus as the cause of diseases classified elsewhere; Z98.84 Bariatric surgery status; Z87.891 Personal history of nicotine dependence; Z79.4 Long term (current) use of insulin; Z79.899 Other long term (current) drug therapy

== ENCOUNTER → 2024-06-26 | Outpatient (CLI) | payer OTHER ==
[~2024-06-26] MED LIST changes: +FERR1TAB8 PO; +LINE1TAB6 PO; +LORA-1041 PO; +OMEP40CA5 PO
[2024-06-26 13:30] LABS: BASO # 0.1 10^3/uL (0.0-0.2); EOS # 0.3 10^3/uL (0.0-0.5); EOS % 3.3 % (0.0-3.0); HEMATOCRIT 32.1 % (42.0-52.0); LYMPH % 25.7 % (24.0-44.0); MEAN CORPUSCULAR HEMOGLOBIN 27.5 pg (27.0-33.0); MEAN CORPUSCULAR HGB CONC 31.2 g/dl (32.0-36.5); MEAN CORPUSCULAR VOLUME 88.4 fl (80.0-96.0); MONO # 0.6 10^3/uL (0.0-0.8); MONO % 7.7 % (2.0-8.0); NEUTROPHILS # 4.9 10^3/uL (1.5-8.5); NEUTROPHILS % 61.9 % (36.0-66.0); PLATELET COUNT, AUTOMATED 460 10^3/uL (150-450); RED BLOOD COUNT 3.63 10^6/uL (4.30-6.10); WHITE BLOOD COUNT 7.9 10^3/uL (4.0-10.0)
[2024-06-26 13:37] LABS: ERYTHROCYTE SEDIMENTATION RATE 86 mm/hr (0-20)
[2024-06-26 14:01] LABS: ALBUMIN 2.5 G/DL (3.2-5.2); ALKALINE PHOSPHATASE 83 U/L (40-129); ALT/SGPT 21 U/L (7.0-40); AST/SGOT 17 U/L (<34); BILIRUBIN,TOTAL < 0.2 MG/DL (0.3-1.2); BLOOD UREA NITROGEN 11 MG/DL (9-23); CALCIUM LEVEL 8.6 MG/DL (8.5-10.1); CARBON DIOXIDE LEVEL 29 MMOL/L (20-31); CHLORIDE LEVEL 107 MMOL/L (98-107); CREATININE FOR GFR 0.69 MG/DL (0.70-1.30); GLOMERULAR FILTRATION RATE > 60.0 (>56); GLUCOSE, FASTING 105 MG/DL (60-100); POTASSIUM SERUM 4.6 MMOL/L (3.5-5.1); SODIUM LEVEL 139 MMOL/L (136-145)
== END ==
LOC: M PLALAB 11:44
PROVIDERS: ATTEND Internal Medicine Infectious Disease
DX: M86.9 Osteomyelitis, unspecified (principal)

== ENCOUNTER 2024-08-05 18:44 | Inpatient (IN) | payer OTHER ==
[~2024-08-05] VITALS: Ht 182.9 cm; Wt 174.7 kg
[2024-08-05] MEDS: ACETAMINOPHEN 325 MG TAB PO ONE (19:41)
[2024-08-05 19:42] LABS: VENOUS BASE EXCESS 0.8 (-2.0-2.0); VENOUS HCO3 25.4 MMOL/L (23.0-27.0); VENOUS O2 SATURATION 47.2 % (60.0-80.0); VENOUS PARTIAL PRESSURE CO2 40.6 mmHg (38.0-50.0); VENOUS PARTIAL PRESSURE O2 24.9 mmHg (30.0-50.0); VENOUS PH 7.414 UNITS (7.330-7.430); VENOUS STANDARD HCO3 24.2 MMOL/L; VENOUS TOTAL CO2 26.6 MMOL/L (24.0-28.0)
[2024-08-05 19:48] LABS: BASO # 0.1 10^3/uL (0.0-0.2); BASO % 0.4 % (0.0-1.0); HEMATOCRIT 33.8 % (42.0-52.0); HEMOGLOBIN 10.8 g/dl (13.5-17.5); LYMPH # 0.3 10^3/uL (1.5-5.0); LYMPH % 2.3 % (24.0-44.0); MEAN CORPUSCULAR HEMOGLOBIN 26.5 pg (27.0-33.0); MEAN CORPUSCULAR VOLUME 82.8 fl (80.0-96.0); MONO # 0.8 10^3/uL (0.0-0.8); MONO % 5.9 % (2.0-8.0); NEUTROPHILS # 12.3 10^3/uL (1.5-8.5); NEUTROPHILS % 90.2 % (36.0-66.0); PLATELET COUNT, AUTOMATED 223 10^3/uL (150-450); RED BLOOD COUNT 4.08 10^6/uL (4.30-6.10); WHITE BLOOD COUNT 13.6 10^3/uL (4.0-10.0)
[2024-08-05 20:06] LABS: INR 1.19; PARTIAL THROMBOPLASTIN TIME 30.5 SECONDS (24.8-34.2); PROTHROMBIN TIME 15.4 SECONDS (12.5-14.5)
[2024-08-05] MEDS ORDERED: VANCOMYCIN HCL 1,500 MG in IV FLUID PLACE HOLDER 1 EA IV ONE (20:15)
[2024-08-05 20:18] LABS: AMYLASE 22 U/L (30-118)
[2024-08-05 20:19] LABS: ALKALINE PHOSPHATASE 136 U/L (40-129); ALT/SGPT 35 U/L (7.0-40); AST/SGOT 77 U/L (<34); BILIRUBIN,DIRECT 0.2 MG/DL (<0.4); BILIRUBIN,TOTAL 0.4 MG/DL (0.3-1.2); BLOOD UREA NITROGEN 41 MG/DL (9-23); C REACTIVE PROTEIN QUANTITATIV 22.67 MG/DL (<1.0); CALCIUM LEVEL 8.7 MG/DL (8.5-10.1); CARBON DIOXIDE LEVEL 24 MMOL/L (20-31); CHLORIDE LEVEL 94 MMOL/L (98-107); CREATININE FOR GFR 1.04 MG/DL (0.70-1.30); GLOMERULAR FILTRATION RATE > 60.0 (>56); GLUCOSE, FASTING 277 MG/DL (60-100); POTASSIUM SERUM 3.6 MMOL/L (3.5-5.1); SODIUM LEVEL 130 MMOL/L (136-145); TOTAL PROTEIN 6.5 G/DL (5.7-8.2)
[2024-08-05 20:26] LABS: PROCALCITONIN 10.15 ng/ml
[2024-08-05] MEDS: CEFEPIME HCL 2 GM in DEXTROSE 5% (D5W) ADV/MINI-BAG 50 ML IV ONE (20:26)
[2024-08-05] MEDS ORDERED: ISOVUE-370 76% 100ML VIAL As Ordered ONE (20:27)
[2024-08-05] MEDS: NS (Normal Saline) 0.9% 1,000 ML IV ONE (21:09)
[2024-08-05] MEDS: VANCOMYCIN 2,000 MG/400 ML IV BAG *LOAD IV ONE (21:09)
[2024-08-05] MEDS ORDERED: HOME MED LIST COMPLETE! XX SCH (23:20)
[2024-08-05] MEDS ORDERED: MOM 30ML SUSPENSION UDC PO PRN (23:40)
[2024-08-05] MEDS ORDERED: DEXTROSE 50% 50ML SYRINGE IV PRN (23:45)
[2024-08-05] MEDS ORDERED: GLUCAGON INJ 1MG VIAL SC PRN (23:45)
[2024-08-05] MEDS ORDERED: GLUCOSE 4 GM CHEW PO PRN (23:45)
[2024-08-06] VITALS (8 sets, daily range): BP systolic 100–153; BP diastolic 54–86; TEMP 97.6–99.8; O2SAT 94–96
[2024-08-06] MEDS: INSULIN LISPRO (NovoLOG) PER UNIT SC SCH ×2 (00:13→20:42)
[2024-08-06] MEDS: CEFEPIME HCL 2 GM in D5W 50 ML IV SCH (03:47)
[2024-08-06] MEDS: VANCOMYCIN/WATER FOR INJ 1,000 MG in IV 1 EA IV SCH (04:27)
[2024-08-06] MEDS: HEPARIN SOD (PORCINE) 5000UNITS/ML 1ML VIAL/SYRINGE SC SCH (05:17)
[2024-08-06 07:02] LABS: HEMATOCRIT 32.4 % (42.0-52.0); HEMOGLOBIN 10.4 g/dl (13.5-17.5); MEAN CORPUSCULAR HEMOGLOBIN 26.3 pg (27.0-33.0); MEAN CORPUSCULAR HGB CONC 32.1 g/dl (32.0-36.5); PLATELET COUNT, AUTOMATED 228 10^3/uL (150-450); RED BLOOD COUNT 3.95 10^6/uL (4.30-6.10); WHITE BLOOD COUNT 13.9 10^3/uL (4.0-10.0)
[2024-08-06 07:50] LABS: ALBUMIN 1.9 G/DL (3.2-5.2); ALKALINE PHOSPHATASE 134 U/L (40-129); ALT/SGPT 31 U/L (7.0-40); AST/SGOT 60 U/L (<34); BILIRUBIN,TOTAL 0.4 MG/DL (0.3-1.2); BLOOD UREA NITROGEN 42 MG/DL (9-23); CALCIUM LEVEL 8.8 MG/DL (8.5-10.1); CARBON DIOXIDE LEVEL 25 MMOL/L (20-31); CHLORIDE LEVEL 96 MMOL/L (98-107); CREATININE FOR GFR 1.14 MG/DL (0.70-1.30); GLOMERULAR FILTRATION RATE > 60.0 (>56); GLUCOSE, FASTING 163 MG/DL (60-100); POTASSIUM SERUM 2.8 MMOL/L (3.5-5.1); SODIUM LEVEL 130 MMOL/L (136-145); TOTAL PROTEIN 6.4 G/DL (5.7-8.2)
[2024-08-06] MEDS: OMEPRAZOLE 20MG CAP PO SCH (08:13)
[2024-08-06] MEDS: LORATADINE 10 MG TAB PO SCH (08:13)
[2024-08-06] MEDS: DOCUSATE SODIUM 100MG CAPSULE PO SCH (08:13)
[2024-08-06] MEDS: ROSUVASTATIN 10 MG TAB (CRESTOR) PO SCH (08:13)
[2024-08-06 08:39] LABS: C REACTIVE PROTEIN QUANTITATIV 20.36 MG/DL (<1.0)
[2024-08-06] MEDS: LR 1,000 ML IV SCH (08:43)
[2024-08-06] MEDS: KCL 10MEQ/100ML SWI (KRUN) 10 MEQ in IV 1 EA IV SCH ×2 (08:44→15:27)
[2024-08-06] MEDS: POTASSIUM CHLORIDE 10MEQ SR TABLET PO ONE (08:44)
[2024-08-06] MEDS ORDERED: CHLORTHALIDONE 25 MG TAB PO SCH (09:00)
[2024-08-06 10:51] LABS: HEMOGLOBIN A1c 6.4 % (4.0-6.0)
[2024-08-06] MEDS: CLINDAMYCIN 900 MG in IV 1 EA IV SCH (11:01)
[2024-08-06] MEDS ORDERED: MEPERIDINE 25 MG/ML 1ML VIAL IV PRN (12:05)
[2024-08-06] MEDS ORDERED: ONDANSETRON 4MG 2ML VIAL IV PRN (12:05)
[2024-08-06] MEDS ORDERED: fentaNYL 100 MCG/2 ML INJECTION IV PRN (12:05)
[2024-08-06] MEDS ORDERED: oxyCODONE 5MG TAB PO PRN (12:05)
[2024-08-06] MEDS ORDERED: HYDROMORPHONE HCL 0.5 MG/ 0.5 ML SYRINGE IV PRN (12:05)
[2024-08-06] MEDS ORDERED: propofoL 200 MG/20 ML VIAL As Ordered ONE (18:45)
[2024-08-06] MEDS ORDERED: MIDAZOLAM INJ 2MG/2ML VIAL As Ordered ONE (18:45)
[2024-08-06] MEDS ORDERED: LIDOCAINE 2% 100MG/5ML SDV (FOR ANES.) As Ordered ONE (18:45)
[2024-08-06] MEDS ORDERED: fentaNYL 100 MCG/2 ML INJECTION As Ordered ONE (18:46)
[2024-08-06] MEDS: LIDOCAINE 1% SDV 30ML VIAL As Ordered ONE (19:17)
[2024-08-06 22:00] LABS: KETONE, URINE AUTO RFX NEGATIVE (NEGATIVE); LEUKOCYTE ESTERASE UR AUTO RFX NEGATIVE (NEGATIVE); MUCUS, URINE RFX SMALL (NEGATIVE); NITRITE, URINE AUTO RFX NEGATIVE (NEGATIVE); RBC, URINE AUTO RFX 2 /HPF (0-3); SQUAM EPITHELIAL CELL UR AURFX 0 /HPF (0-6); WBC, URINE AUTO RFX 3 /HPF (0-3)
[2024-08-07 03:01] VITALS: BP 123/67; TEMP 97.6; O2SAT 94
[2024-08-07 06:46] LABS: BASO % 0.3 % (0.0-1.0); EOS # 0.1 10^3/uL (0.0-0.5); EOS % 0.4 % (0.0-3.0); HEMATOCRIT 29.6 % (42.0-52.0); HEMOGLOBIN 9.3 g/dl (13.5-17.5); LYMPH # 1.2 10^3/uL (1.5-5.0); LYMPH % 8.3 % (24.0-44.0); MEAN CORPUSCULAR HEMOGLOBIN 26.2 pg (27.0-33.0); MEAN CORPUSCULAR HGB CONC 31.4 g/dl (32.0-36.5); MEAN CORPUSCULAR VOLUME 83.4 fl (80.0-96.0); MONO # 1.1 10^3/uL (0.0-0.8); MONO % 8.3 % (2.0-8.0); NEUTROPHILS % 79.8 % (36.0-66.0); PLATELET COUNT, AUTOMATED 276 10^3/uL (150-450); RED BLOOD COUNT 3.55 10^6/uL (4.30-6.10); WHITE BLOOD COUNT 13.8 10^3/uL (4.0-10.0)
[2024-08-07 07:15] LABS: C REACTIVE PROTEIN QUANTITATIV 17.18 MG/DL (<1.0)
[2024-08-07 07:24] LABS: BLOOD UREA NITROGEN 36 MG/DL (9-23); CALCIUM LEVEL 8.4 MG/DL (8.5-10.1); CARBON DIOXIDE LEVEL 25 MMOL/L (20-31); CHLORIDE LEVEL 98 MMOL/L (98-107); CREATININE FOR GFR 1.04 MG/DL (0.70-1.30); GLOMERULAR FILTRATION RATE > 60.0 (>56); GLUCOSE, FASTING 120 MG/DL (60-100); POTASSIUM SERUM 2.9 MMOL/L (3.5-5.1); SODIUM LEVEL 132 MMOL/L (136-145)
[2024-08-07 07:27] VITALS: BP 121/57; TEMP 98.3; O2SAT 96
[2024-08-07] MEDS: INSULIN LISPRO (NovoLOG) PER UNIT SC SCH (09:37)
[2024-08-07] MEDS: KCL 10MEQ/100ML SWI (KRUN) 10 MEQ in IV 1 EA IV SCH (09:38)
[2024-08-07] MEDS: POTASSIUM CHLORIDE 10MEQ SR TABLET PO ONE ×2 (11:12→18:17)
[2024-08-07 11:38] VITALS: BP 117/74; TEMP 98.1; O2SAT 95
[2024-08-07] MEDS: ENOXAPARIN 40MG/0.4ML SYRINGE (J1650 PER 10MG) SC SCH (13:00)
[2024-08-07 15:40] VITALS: BP 112/70; TEMP 98.2; O2SAT 95
[2024-08-07 19:34] VITALS: BP 122/68; TEMP 97.7; O2SAT 98
[2024-08-07] MEDS: LEVEMIR (INSULIN DETEMIR) 1 UNITS/0.01ML SC SCH (20:15)
[2024-08-07 23:06] VITALS: BP 104/51; TEMP 97.4; O2SAT 96
[2024-08-08] MEDS: ACETAMINOPHEN 325 MG TAB PO PRN (01:19)
[2024-08-08 03:20] VITALS: BP 107/68; TEMP 97.2; O2SAT 97
[2024-08-08 06:03] LABS: HEMATOCRIT 30.9 % (42.0-52.0); HEMOGLOBIN 9.8 g/dl (13.5-17.5); MEAN CORPUSCULAR HEMOGLOBIN 26.2 pg (27.0-33.0); MEAN CORPUSCULAR HGB CONC 31.7 g/dl (32.0-36.5); MEAN CORPUSCULAR VOLUME 82.6 fl (80.0-96.0); PLATELET COUNT, AUTOMATED 312 10^3/uL (150-450); RED BLOOD COUNT 3.74 10^6/uL (4.30-6.10); WHITE BLOOD COUNT 11.5 10^3/uL (4.0-10.0)
[2024-08-08 06:14] LABS: BLOOD UREA NITROGEN 28 MG/DL (9-23); CALCIUM LEVEL 8.6 MG/DL (8.5-10.1); CARBON DIOXIDE LEVEL 27 MMOL/L (20-31); CHLORIDE LEVEL 101 MMOL/L (98-107); CREATININE FOR GFR 0.85 MG/DL (0.70-1.30); GLOMERULAR FILTRATION RATE > 60.0 (>56); GLUCOSE, FASTING 106 MG/DL (60-100); POTASSIUM SERUM 3.4 MMOL/L (3.5-5.1); SODIUM LEVEL 137 MMOL/L (136-145)
[2024-08-08 06:56] LABS: ATYPICAL LYMPH 2 % (0-5); EOSINOPHILS 2 % (0-3); LYMPHOCYTES 8 % (16-44); MONOCYTES 9 % (0-5); NEUTROPHILS 79 % (28-66); PLATELET ESTIMATE NORMAL (NORMAL)
[2024-08-08 06:57] LABS: ANISOCYTOSIS 1+; HYPOCHROMASIA 1+
[2024-08-08 06:58] LABS: OVALOCYTES 1+; POIKILOCYTOSIS 1+
[2024-08-08 07:15] VITALS: BP 120/61; TEMP 97.1; O2SAT 95
[2024-08-08] MEDS: POTASSIUM CHLORIDE 10MEQ SR TABLET PO ONE (08:26)
[2024-08-08 11:53] VITALS: BP 113/62; TEMP 97.9; O2SAT 96
[2024-08-08 15:44] VITALS: BP 122/70; TEMP 98.1; O2SAT 95
[2024-08-08 19:36] VITALS: BP 124/71; TEMP 97.3; O2SAT 98
[2024-08-08] MEDS: VANCOMYCIN HCL 1,500 MG in NS 500 ML IV SCH (21:06)
[2024-08-08 23:13] VITALS: BP 114/69; TEMP 97.4; O2SAT 95
[2024-08-09] VITALS (10 sets, daily range): BP systolic 100–145; BP diastolic 52–79; TEMP 97.2–98.2; O2SAT 92–99
[2024-08-09 07:22] LABS: BASO # 0.1 10^3/uL (0.0-0.2); BASO % 0.5 % (0.0-1.0); EOS # 0.2 10^3/uL (0.0-0.5); EOS % 1.8 % (0.0-3.0); HEMATOCRIT 29.5 % (42.0-52.0); HEMOGLOBIN 9.5 g/dl (13.5-17.5); LYMPH # 1.7 10^3/uL (1.5-5.0); LYMPH % 12.5 % (24.0-44.0); MEAN CORPUSCULAR HEMOGLOBIN 26.5 pg (27.0-33.0); MEAN CORPUSCULAR HGB CONC 32.2 g/dl (32.0-36.5); MEAN CORPUSCULAR VOLUME 82.4 fl (80.0-96.0); MONO # 0.8 10^3/uL (0.0-0.8); NEUTROPHILS # 10.4 10^3/uL (1.5-8.5); NEUTROPHILS % 76.2 % (36.0-66.0); PLATELET COUNT, AUTOMATED 424 10^3/uL (150-450); RED BLOOD COUNT 3.58 10^6/uL (4.30-6.10); WHITE BLOOD COUNT 13.6 10^3/uL (4.0-10.0)
[2024-08-09 07:42] LABS: VANCOMYCIN LEVEL TROUGH 19.7 UG/ML (10.0-20.0)
[2024-08-09 07:43] LABS: BLOOD UREA NITROGEN 22 MG/DL (9-23); C REACTIVE PROTEIN QUANTITATIV 7.66 MG/DL (<1.0); CALCIUM LEVEL 8.5 MG/DL (8.5-10.1); CARBON DIOXIDE LEVEL 28 MMOL/L (20-31); CHLORIDE LEVEL 102 MMOL/L (98-107); CREATININE FOR GFR 0.71 MG/DL (0.70-1.30); GLOMERULAR FILTRATION RATE > 60.0 (>56); GLUCOSE, FASTING 134 MG/DL (60-100); MAGNESIUM LEVEL 1.7 MG/DL (1.8-2.4); POTASSIUM SERUM 3.5 MMOL/L (3.5-5.1); SODIUM LEVEL 138 MMOL/L (136-145)
[2024-08-09] MEDS: VANCOMYCIN 1,250 MG/250 ML IV BAG IV SCH (08:12)
[2024-08-09] MEDS: LACTIC ACID 12% LOTION 225 GM BTL TOP SCH (08:13)
[2024-08-09] MEDS: POTASSIUM CHLORIDE 10MEQ SR TABLET PO ONE (10:12)
[2024-08-09] MEDS ORDERED: ONDANSETRON 4MG 2ML VIAL As Ordered ONE (16:01)
[2024-08-09] MEDS ORDERED: ACETAMINOPHEN 1000MG/100ML IV BAG As Ordered ONE (16:03)
[2024-08-09] MEDS: VANCOMYCIN 1000MG/20ML VIAL As Ordered ONE (16:33)
[2024-08-09] MEDS: LIDOCAINE 1% MDV 20ML VIAL As Ordered ONE (16:33)
[2024-08-09] MEDS ORDERED: DEXTROSE 50% 50ML SYRINGE IV PRN (17:10)
[2024-08-09] MEDS ORDERED: GLUCAGON INJ 1MG VIAL SC PRN (17:10)
[2024-08-09] MEDS ORDERED: oxyCODONE 5MG TAB PO PRN (17:10)
[2024-08-09] MEDS ORDERED: INSULIN LISPRO (NovoLOG) PER UNIT SC PRN (17:10)
[2024-08-09] MEDS ORDERED: GLUCOSE 4 GM CHEW PO PRN (17:10)
[2024-08-09] MEDS ORDERED: ONDANSETRON 4MG 2ML VIAL IV PRN (17:10)
[2024-08-09] MEDS ORDERED: fentaNYL 100 MCG/2 ML INJECTION IV PRN (17:10)
[2024-08-09] MEDS: NS (Normal Saline) 0.9% 1,000 ML IV SCH (17:10)
[2024-08-10 03:17] VITALS: BP 135/60; TEMP 98.4; O2SAT 95
[2024-08-10 07:27] VITALS: BP 135/62; TEMP 98; O2SAT 94
[2024-08-10 08:15] LABS: BASO # 0.1 10^3/uL (0.0-0.2); BASO % 0.6 % (0.0-1.0); EOS # 0.1 10^3/uL (0.0-0.5); HEMATOCRIT 30.1 % (42.0-52.0); HEMOGLOBIN 9.2 g/dl (13.5-17.5); LYMPH # 1.3 10^3/uL (1.5-5.0); LYMPH % 10.3 % (24.0-44.0); MEAN CORPUSCULAR HEMOGLOBIN 25.7 pg (27.0-33.0); MEAN CORPUSCULAR HGB CONC 30.6 g/dl (32.0-36.5); MEAN CORPUSCULAR VOLUME 84.1 fl (80.0-96.0); MONO # 0.8 10^3/uL (0.0-0.8); MONO % 6.1 % (2.0-8.0); NEUTROPHILS # 9.9 10^3/uL (1.5-8.5); NEUTROPHILS % 77.8 % (36.0-66.0); PLATELET COUNT, AUTOMATED 450 10^3/uL (150-450); RED BLOOD COUNT 3.58 10^6/uL (4.30-6.10); WHITE BLOOD COUNT 12.7 10^3/uL (4.0-10.0)
[2024-08-10 08:48] LABS: BLOOD UREA NITROGEN 21 MG/DL (9-23); C REACTIVE PROTEIN QUANTITATIV 8.64 MG/DL (<1.0); CALCIUM LEVEL 8.1 MG/DL (8.5-10.1); CARBON DIOXIDE LEVEL 29 MMOL/L (20-31); CHLORIDE LEVEL 102 MMOL/L (98-107); CREATININE FOR GFR 0.79 MG/DL (0.70-1.30); GLOMERULAR FILTRATION RATE > 60.0 (>56); GLUCOSE, FASTING 181 MG/DL (60-100); MAGNESIUM LEVEL 1.7 MG/DL (1.8-2.4); POTASSIUM SERUM 3.8 MMOL/L (3.5-5.1); SODIUM LEVEL 138 MMOL/L (136-145)
[2024-08-10] MEDS: VANCOMYCIN 1,000MG/200 ML IV BAG IV SCH (09:10)
[2024-08-10] MEDS: MAG SULF 1GM/100ML (MAG RUN) 1 GM in IV 1 EA IV SCH (10:17)
[2024-08-10 16:00] VITALS: BP 142/69; TEMP 97.4; O2SAT 94
[2024-08-10 20:00] VITALS: BP 154/70; TEMP 97.1; O2SAT 96
[2024-08-11 04:00] VITALS: BP 138/66; TEMP 97.4; O2SAT 100
[2024-08-11 07:25] VITALS: BP 118/58; TEMP 101; O2SAT 97
[2024-08-11 08:02] LABS: BASO # 0.1 10^3/uL (0.0-0.2); BASO % 0.4 % (0.0-1.0); EOS # 0.2 10^3/uL (0.0-0.5); EOS % 1.1 % (0.0-3.0); LYMPH # 1.7 10^3/uL (1.5-5.0); LYMPH % 12.1 % (24.0-44.0); MEAN CORPUSCULAR HEMOGLOBIN 26.1 pg (27.0-33.0); MEAN CORPUSCULAR VOLUME 84.1 fl (80.0-96.0); MONO # 1.1 10^3/uL (0.0-0.8); MONO % 7.5 % (2.0-8.0); NEUTROPHILS # 10.6 10^3/uL (1.5-8.5); NEUTROPHILS % 75.1 % (36.0-66.0); PLATELET COUNT, AUTOMATED 424 10^3/uL (150-450); RED BLOOD COUNT 3.45 10^6/uL (4.30-6.10)
[2024-08-11 08:25] LABS: C REACTIVE PROTEIN QUANTITATIV 7.85 MG/DL (<1.0)
[2024-08-11 08:26] LABS: BLOOD UREA NITROGEN 26 MG/DL (9-23); CALCIUM LEVEL 8.1 MG/DL (8.5-10.1); CARBON DIOXIDE LEVEL 28 MMOL/L (20-31); CHLORIDE LEVEL 102 MMOL/L (98-107); CREATININE FOR GFR 0.88 MG/DL (0.70-1.30); GLOMERULAR FILTRATION RATE > 60.0 (>56); GLUCOSE, FASTING 163 MG/DL (60-100); MAGNESIUM LEVEL 1.9 MG/DL (1.8-2.4); SODIUM LEVEL 136 MMOL/L (136-145)
[2024-08-11 09:26] VITALS: TEMP 100.5
[2024-08-11] MEDS: IBUPROFEN 600MG TAB PO ONE (09:56)
[2024-08-11 12:00] VITALS: TEMP 99.2
[2024-08-11] MEDS ORDERED: PROHANCE 279.3MG/ML 15ML VIAL As Ordered ONE (13:46)
[2024-08-11] MEDS ORDERED: PROHANCE 279.3MG/ML 5ML VIAL As Ordered ONE (13:46)
[2024-08-11] MEDS: ERYTHROMYCIN OPHTH OINT OU SCH (17:03)
[2024-08-11 19:31] VITALS: BP 119/67; TEMP 98.4; O2SAT 99
[2024-08-12 02:12] VITALS: TEMP 100.8
[2024-08-12 03:55] VITALS: BP 129/60; TEMP 99; O2SAT 97
[2024-08-12 06:48] LABS: BASO % 0.3 % (0.0-1.0); EOS # 0.1 10^3/uL (0.0-0.5); HEMATOCRIT 29.4 % (42.0-52.0); HEMOGLOBIN 8.7 g/dl (13.5-17.5); LYMPH # 0.9 10^3/uL (1.5-5.0); LYMPH % 9.6 % (24.0-44.0); MEAN CORPUSCULAR HEMOGLOBIN 25.4 pg (27.0-33.0); MEAN CORPUSCULAR HGB CONC 29.6 g/dl (32.0-36.5); MEAN CORPUSCULAR VOLUME 85.7 fl (80.0-96.0); MONO # 0.5 10^3/uL (0.0-0.8); MONO % 5.4 % (2.0-8.0); NEUTROPHILS # 7.8 10^3/uL (1.5-8.5); NEUTROPHILS % 81.4 % (36.0-66.0); PLATELET COUNT, AUTOMATED 376 10^3/uL (150-450); RED BLOOD COUNT 3.43 10^6/uL (4.30-6.10); WHITE BLOOD COUNT 9.6 10^3/uL (4.0-10.0)
[2024-08-12 07:15] LABS: BLOOD UREA NITROGEN 35 MG/DL (9-23); C REACTIVE PROTEIN QUANTITATIV 8.84 MG/DL (<1.0); CARBON DIOXIDE LEVEL 26 MMOL/L (20-31); CHLORIDE LEVEL 101 MMOL/L (98-107); CREATININE FOR GFR 1.06 MG/DL (0.70-1.30); GLOMERULAR FILTRATION RATE > 60.0 (>56); GLUCOSE, FASTING 157 MG/DL (60-100); POTASSIUM SERUM 4.1 MMOL/L (3.5-5.1); SODIUM LEVEL 134 MMOL/L (136-145)
[2024-08-12 08:00] VITALS: BP 126/65; TEMP 98.6; O2SAT 94
[2024-08-12 16:00] VITALS: BP 137/68; TEMP 96.9; O2SAT 98
[2024-08-12 19:18] VITALS: BP 114/58; TEMP 97.1; O2SAT 96
[2024-08-13 03:42] VITALS: BP 150/77; TEMP 98.1; O2SAT 97
[2024-08-13 06:25] LABS: BASO % 0.3 % (0.0-1.0); EOS # 0.1 10^3/uL (0.0-0.5); EOS % 1.1 % (0.0-3.0); HEMATOCRIT 27.1 % (42.0-52.0); HEMOGLOBIN 8.3 g/dl (13.5-17.5); LYMPH # 1.1 10^3/uL (1.5-5.0); LYMPH % 11.1 % (24.0-44.0); MEAN CORPUSCULAR HGB CONC 30.6 g/dl (32.0-36.5); MONO # 0.7 10^3/uL (0.0-0.8); MONO % 6.6 % (2.0-8.0); NEUTROPHILS # 7.8 10^3/uL (1.5-8.5); NEUTROPHILS % 79.4 % (36.0-66.0); PLATELET COUNT, AUTOMATED 339 10^3/uL (150-450); RED BLOOD COUNT 3.19 10^6/uL (4.30-6.10); WHITE BLOOD COUNT 9.8 10^3/uL (4.0-10.0)
[2024-08-13 06:47] LABS: BLOOD UREA NITROGEN 43 MG/DL (9-23); C REACTIVE PROTEIN QUANTITATIV 9.52 MG/DL (<1.0); CALCIUM LEVEL 7.9 MG/DL (8.5-10.1); CARBON DIOXIDE LEVEL 26 MMOL/L (20-31); CHLORIDE LEVEL 102 MMOL/L (98-107); CREATININE FOR GFR 1.14 MG/DL (0.70-1.30); GLOMERULAR FILTRATION RATE > 60.0 (>56); GLUCOSE, FASTING 138 MG/DL (60-100); POTASSIUM SERUM 4.1 MMOL/L (3.5-5.1); SODIUM LEVEL 135 MMOL/L (136-145)
[2024-08-13] MEDS ORDERED: fentaNYL 100 MCG/2 ML INJECTION IV PRN (09:10)
[2024-08-13] MEDS ORDERED: oxyCODONE 5MG TAB PO PRN (09:10)
[2024-08-13] MEDS ORDERED: METOCLOPRAMIDE INJ 10MG/2ML VIAL IV PRN (09:10)
[2024-08-13] MEDS ORDERED: MEPERIDINE 25 MG/ML 1ML VIAL IV PRN (09:10)
[2024-08-13] MEDS ORDERED: ONDANSETRON 4MG 2ML VIAL IV PRN (09:10)
[2024-08-13] MEDS ORDERED: HYDROMORPHONE HCL 0.5 MG/ 0.5 ML SYRINGE IV PRN (09:10)
[2024-08-13 09:31] LABS: VANCOMYCIN RANDOM 20.6 UG/ML
[2024-08-13 09:35] VITALS: BP 125/60; TEMP 98.4; O2SAT 95
[2024-08-13] MEDS: ALBUTEROL SULFATE 2.5MG/0.5ML INH NEB SOLN INH ONE (09:37)
[2024-08-13] MEDS: VANCOMYCIN HCL 750 MG, VIAL MATE ADAPTER 1 EACH in NS 250 ML IV SCH (12:06)
[2024-08-13 16:00] VITALS: BP 137/61; TEMP 102; O2SAT 98
[2024-08-13 17:05] VITALS: TEMP 101
[2024-08-13 19:37] VITALS: BP 114/53; TEMP 99.2; O2SAT 95
[2024-08-13 21:08] VITALS: BP 144/74; TEMP 97.5; O2SAT 98
[2024-08-14] VITALS (9 sets, daily range): BP systolic 128–148; BP diastolic 64–84; TEMP 97.3–98.2; O2SAT 95–100
[2024-08-14 06:56] LABS: BASO % 0.2 % (0.0-1.0); EOS # 0.1 10^3/uL (0.0-0.5); EOS % 0.9 % (0.0-3.0); HEMOGLOBIN 7.4 g/dl (13.5-17.5); LYMPH # 1.2 10^3/uL (1.5-5.0); LYMPH % 14.1 % (24.0-44.0); MEAN CORPUSCULAR HEMOGLOBIN 25.4 pg (27.0-33.0); MEAN CORPUSCULAR HGB CONC 30.8 g/dl (32.0-36.5); MEAN CORPUSCULAR VOLUME 82.5 fl (80.0-96.0); MONO # 0.8 10^3/uL (0.0-0.8); MONO % 8.8 % (2.0-8.0); NEUTROPHILS # 6.6 10^3/uL (1.5-8.5); PLATELET COUNT, AUTOMATED 264 10^3/uL (150-450); RED BLOOD COUNT 2.91 10^6/uL (4.30-6.10); WHITE BLOOD COUNT 8.8 10^3/uL (4.0-10.0)
[2024-08-14 07:28] LABS: BLOOD UREA NITROGEN 50 MG/DL (9-23); C REACTIVE PROTEIN QUANTITATIV 12.24 MG/DL (<1.0); CALCIUM LEVEL 7.9 MG/DL (8.5-10.1); CARBON DIOXIDE LEVEL 24 MMOL/L (20-31); CHLORIDE LEVEL 103 MMOL/L (98-107); CREATININE FOR GFR 1.19 MG/DL (0.70-1.30); GLOMERULAR FILTRATION RATE > 60.0 (>56); GLUCOSE, FASTING 131 MG/DL (60-100); POTASSIUM SERUM 3.9 MMOL/L (3.5-5.1); SODIUM LEVEL 135 MMOL/L (136-145)
[2024-08-14] MEDS: VANCOMYCIN HCL 750 MG, VIAL MATE ADAPTER 1 EACH in NS 250 ML IV SCH (08:11)
[2024-08-14] MEDS: ENOXAPARIN 40MG/0.4ML SYRINGE (J1650 PER 10MG) SC SCH (09:32)
[2024-08-15 04:00] VITALS: BP 115/59; TEMP 97.5; O2SAT 94
[2024-08-15 07:30] LABS: BASO % 0.4 % (0.0-1.0); EOS # 0.1 10^3/uL (0.0-0.5); EOS % 1.7 % (0.0-3.0); HEMATOCRIT 24.5 % (42.0-52.0); HEMOGLOBIN 7.7 g/dl (13.5-17.5); LYMPH # 1.2 10^3/uL (1.5-5.0); LYMPH % 17.5 % (24.0-44.0); MEAN CORPUSCULAR HEMOGLOBIN 25.8 pg (27.0-33.0); MEAN CORPUSCULAR HGB CONC 31.4 g/dl (32.0-36.5); MEAN CORPUSCULAR VOLUME 82.2 fl (80.0-96.0); MONO # 0.7 10^3/uL (0.0-0.8); MONO % 9.4 % (2.0-8.0); NEUTROPHILS % 70.3 % (36.0-66.0); PLATELET COUNT, AUTOMATED 277 10^3/uL (150-450); RED BLOOD COUNT 2.98 10^6/uL (4.30-6.10); WHITE BLOOD COUNT 7.1 10^3/uL (4.0-10.0)
[2024-08-15 07:58] LABS: C REACTIVE PROTEIN QUANTITATIV 10.97 MG/DL (<1.0)
[2024-08-15 08:00] LABS: BLOOD UREA NITROGEN 51 MG/DL (9-23); CALCIUM LEVEL 7.8 MG/DL (8.5-10.1); CARBON DIOXIDE LEVEL 24 MMOL/L (20-31); CHLORIDE LEVEL 103 MMOL/L (98-107); CREATININE FOR GFR 1.26 MG/DL (0.70-1.30); GLOMERULAR FILTRATION RATE > 60.0 (>56); GLUCOSE, FASTING 110 MG/DL (60-100); SODIUM LEVEL 135 MMOL/L (136-145)
[2024-08-15 12:00] VITALS: BP 130/72; TEMP 97.7; O2SAT 96
[2024-08-15 20:10] VITALS: BP 130/70; TEMP 97.3; O2SAT 98
[2024-08-16 05:00] VITALS: BP 137/73; TEMP 98.2; O2SAT 96
[2024-08-16] MEDS ORDERED: SODIUM CHLORIDE 0.9% INJ 10 ML SYR IV PRN (10:05)
[2024-08-16] MEDS: SODIUM CHLORIDE 0.9% INJ 10 ML SYR IV SCH (10:30)
[2024-08-16 10:43] LABS: BASO % 0.5 % (0.0-1.0); EOS # 0.1 10^3/uL (0.0-0.5); EOS % 0.8 % (0.0-3.0); HEMATOCRIT 26.5 % (42.0-52.0); HEMOGLOBIN 8.1 g/dl (13.5-17.5); LYMPH # 1.5 10^3/uL (1.5-5.0); LYMPH % 19.3 % (24.0-44.0); MEAN CORPUSCULAR HEMOGLOBIN 25.8 pg (27.0-33.0); MEAN CORPUSCULAR HGB CONC 30.6 g/dl (32.0-36.5); MEAN CORPUSCULAR VOLUME 84.4 fl (80.0-96.0); MONO # 0.6 10^3/uL (0.0-0.8); MONO % 7.9 % (2.0-8.0); NEUTROPHILS # 5.7 10^3/uL (1.5-8.5); PLATELET COUNT, AUTOMATED 358 10^3/uL (150-450); RED BLOOD COUNT 3.14 10^6/uL (4.30-6.10)
[2024-08-16 11:00] LABS: BLOOD UREA NITROGEN 49 MG/DL (9-23); C REACTIVE PROTEIN QUANTITATIV 7.71 MG/DL (<1.0); CALCIUM LEVEL 8.1 MG/DL (8.5-10.1); CARBON DIOXIDE LEVEL 26 MMOL/L (20-31); CHLORIDE LEVEL 104 MMOL/L (98-107); CREATININE FOR GFR 1.15 MG/DL (0.70-1.30); GLOMERULAR FILTRATION RATE > 60.0 (>56); GLUCOSE, FASTING 113 MG/DL (60-100); POTASSIUM SERUM 4.4 MMOL/L (3.5-5.1); SODIUM LEVEL 136 MMOL/L (136-145)
[2024-08-16 12:10] VITALS: BP 135/77; TEMP 98.5; O2SAT 96
[2024-08-16 19:41] VITALS: BP 141/74; TEMP 97.9; O2SAT 98
[2024-08-17 05:08] VITALS: BP 137/68; TEMP 98.1; O2SAT 93
[2024-08-17 07:47] LABS: VANCOMYCIN LEVEL TROUGH 15.8 UG/ML (10.0-20.0)
[2024-08-17 07:48] LABS: BLOOD UREA NITROGEN 48 MG/DL (9-23); CALCIUM LEVEL 7.8 MG/DL (8.5-10.1); CARBON DIOXIDE LEVEL 26 MMOL/L (20-31); CHLORIDE LEVEL 105 MMOL/L (98-107); CREATININE FOR GFR 1.23 MG/DL (0.70-1.30); GLOMERULAR FILTRATION RATE > 60.0 (>56); GLUCOSE, FASTING 135 MG/DL (60-100); POTASSIUM SERUM 4.4 MMOL/L (3.5-5.1); SODIUM LEVEL 138 MMOL/L (136-145)
[2024-08-17 12:00] VITALS: BP 120/64; TEMP 97.5; O2SAT 98
[2024-08-18 04:29] VITALS: BP 120/62; TEMP 97.3; O2SAT 90
[2024-08-19 04:00] VITALS: BP 134/70; TEMP 97.5; O2SAT 79
[2024-08-19] MEDS: DAPTOmycin 1,000 MG in NS 50 ML IV SCH (08:41)
[2024-08-19] MEDS ORDERED: SODIUM CHLORIDE 0.9% INJ 10 ML SYR IV PRN (20:25)
[2024-08-21 04:00] VITALS: BP 130/62; TEMP 98.6; O2SAT 97
[2024-08-21 19:51] VITALS: BP 157/75; TEMP 98.1; O2SAT 96
[2024-08-22 04:00] VITALS: BP 153/73; TEMP 97.5; O2SAT 95
[2024-08-22 12:00] VITALS: BP 128/56; TEMP 97.7; O2SAT 95
[2024-08-22 18:48] LABS: HEMATOCRIT 25.3 % (42.0-52.0); HEMOGLOBIN 7.5 g/dl (13.5-17.5); MEAN CORPUSCULAR HEMOGLOBIN 25.6 pg (27.0-33.0); MEAN CORPUSCULAR HGB CONC 29.6 g/dl (32.0-36.5); MEAN CORPUSCULAR VOLUME 86.3 fl (80.0-96.0); PLATELET COUNT, AUTOMATED 338 10^3/uL (150-450); RED BLOOD COUNT 2.93 10^6/uL (4.30-6.10)
[2024-08-22 19:19] LABS: BLOOD UREA NITROGEN 27 MG/DL (9-23); C REACTIVE PROTEIN QUANTITATIV 6.59 MG/DL (<1.0); CALCIUM LEVEL 8.2 MG/DL (8.5-10.1); CARBON DIOXIDE LEVEL 26 MMOL/L (20-31); CHLORIDE LEVEL 107 MMOL/L (98-107); CREATININE FOR GFR 1.15 MG/DL (0.70-1.30); GLOMERULAR FILTRATION RATE > 60.0 (>56); GLUCOSE, FASTING 136 MG/DL (60-100); SODIUM LEVEL 138 MMOL/L (136-145)
[2024-08-22 19:45] VITALS: BP 142/73; TEMP 98.2; O2SAT 97
[2024-08-23 04:16] VITALS: BP 141/72; TEMP 97.7; O2SAT 98
[2024-08-23 12:00] VITALS: BP 142/75; TEMP 98.1; O2SAT 96
[2024-08-23 20:23] VITALS: BP 143/75; TEMP 97.7
[2024-08-23 23:17] VITALS: BP 143/75; TEMP 97.7
[2024-08-24 04:18] VITALS: BP 141/73; TEMP 97.7; O2SAT 96
[2024-08-24 12:00] VITALS: BP 125/73; TEMP 97.5; O2SAT 100
[2024-08-24 20:12] VITALS: BP 141/69; TEMP 98.2; O2SAT 95
[2024-08-25 04:50] VITALS: BP 139/70; TEMP 98.6; O2SAT 96
[2024-08-25 12:00] VITALS: BP 118/58; TEMP 97.7
[2024-08-26 04:00] VITALS: BP 149/77; TEMP 98.1; O2SAT 98
[2024-08-26 11:30] VITALS: BP 132/72; TEMP 97.7; O2SAT 95
[2024-08-26] MEDS: BACTRIM 160MG/800MG DS TAB PO SCH (22:51)
[2024-08-27 04:00] VITALS: BP 147/69; TEMP 98.6; O2SAT 97
[2024-08-28 03:58] VITALS: BP 141/70; TEMP 97.9; O2SAT 93
[2024-08-28] MEDS ORDERED: NYSTATIN 100,000 UNITS/GM TOPICAL PWD 15GM TOP PRN (11:35)
[2024-08-29 04:22] VITALS: BP 139/70; TEMP 97.5; O2SAT 93
[2024-08-30 04:21] VITALS: BP 136/69; TEMP 97.9; O2SAT 93
[2024-08-30] MEDS: LACTOBACILLUS ACIDOPHILUS CAP (BACID) PO SCH (08:39)
[2024-08-31 05:18] VITALS: BP 131/67; TEMP 98.6; O2SAT 94
[2024-08-31 18:41] LABS: MEAN CORPUSCULAR HEMOGLOBIN 24.9 pg (27.0-33.0); MEAN CORPUSCULAR VOLUME 83.1 fl (80.0-96.0); PLATELET COUNT, AUTOMATED 397 10^3/uL (150-450); RED BLOOD COUNT 2.49 10^6/uL (4.30-6.10); WHITE BLOOD COUNT 6.8 10^3/uL (4.0-10.0)
[2024-08-31 18:49] LABS: HEMATOCRIT 20.7 % (42.0-52.0); HEMOGLOBIN 6.2 g/dl (13.5-17.5)
[2024-08-31 19:14] LABS: BLOOD UREA NITROGEN 12 MG/DL (9-23); C REACTIVE PROTEIN QUANTITATIV 4.79 MG/DL (<1.0); CARBON DIOXIDE LEVEL 27 MMOL/L (20-31); CHLORIDE LEVEL 102 MMOL/L (98-107); CREATININE FOR GFR 1.26 MG/DL (0.70-1.30); GLOMERULAR FILTRATION RATE > 60.0 (>56); GLUCOSE, FASTING 103 MG/DL (60-100); POTASSIUM SERUM 4.2 MMOL/L (3.5-5.1); SODIUM LEVEL 138 MMOL/L (136-145)
[2024-08-31 20:53] LABS: PERCENT SATURATION 5.2 % (19.7-50.0)
[2024-08-31 20:56] LABS: FERRITIN 253.2 NG/ML (10.5-307.3)
[2024-08-31 21:57] VITALS: BP 127/67; TEMP 97.7
[2024-08-31 22:15] VITALS: BP 126/64; TEMP 97.7
[2024-08-31 23:05] VITALS: BP 132/70; TEMP 97.7
[2024-09-01 00:05] VITALS: BP 133/69; TEMP 97.7
[2024-09-01 00:32] VITALS: BP 141/76; TEMP 97.7
[2024-09-01 00:48] VITALS: BP 143/75; TEMP 97.7
[2024-09-01 01:42] VITALS: BP 145/74; TEMP 97.7
[2024-09-01 02:14] VITALS: BP 140/73; TEMP 97.9
[2024-09-01 04:25] LABS: HEMATOCRIT 25.2 % (42.0-52.0); HEMOGLOBIN 7.8 g/dl (13.5-17.5)
[2024-09-01 04:36] VITALS: BP 141/74; TEMP 97.5
[2024-09-01] MEDS: FERROUS SULFATE 325MG TAB PO SCH (08:22)
[2024-09-01] MEDS: MICONAZOLE TOPICAL 2% CREAM 15GM TOP PRN (08:25)
[2024-09-01 08:42] LABS: HEMATOCRIT 25.8 % (42.0-52.0)
[2024-09-01 14:03] LABS: HEMATOCRIT 27.9 % (42.0-52.0); HEMOGLOBIN 8.4 g/dl (13.5-17.5)
[2024-09-01 20:22] LABS: HEMATOCRIT 25.3 % (42.0-52.0); HEMOGLOBIN 7.9 g/dl (13.5-17.5)
[2024-09-02 02:19] LABS: HEMATOCRIT 25.2 % (42.0-52.0); HEMOGLOBIN 7.7 g/dl (13.5-17.5)
[2024-09-02 04:00] VITALS: BP 124/67; TEMP 97.5; O2SAT 96
[2024-09-02 08:31] LABS: HEMATOCRIT 27.4 % (42.0-52.0); HEMOGLOBIN 8.2 g/dl (13.5-17.5)
[2024-09-02] MEDS ORDERED: NYST10006 TOP (11:27)
[2024-09-02] MEDS ORDERED: BACTDSTA PO (11:27)
== END 2024-09-02 13:40 | disposition home health service (06) | DRG 710 ==
LOC: EDBD 18:44 → M ED 18:44 → M ED INP 23:39 → M PCU 08-06 00:54 → M MS5PR 08-13 20:53
PROVIDERS: ADMIT Family Medicine; ATTEND Family Medicine
PROC: 0QBL0ZZ Excision of Right Tarsal, Open Approach (ICD-10-PCS; 2024-08-06)
PROC: 0QBN0ZZ Excision of Right Metatarsal, Open Approach (ICD-10-PCS; principal; 2024-08-06 09:10)
PROC: B246ZZZ Ultrasonography of Right and Left Heart (ICD-10-PCS; 2024-08-08)
PROC: 0LBV0ZZ Excision of Right Foot Tendon, Open Approach (ICD-10-PCS; 2024-08-09)
PROC: 0QBL0ZZ Excision of Right Tarsal, Open Approach (ICD-10-PCS; 2024-08-13)
PROC: 0SBM0ZZ Excision of Right Metatarsal-Phalangeal Joint, Open Approach (ICD-10-PCS; 2024-08-13)
PROC: 3E0U329 Introduction of Other Anti-infective into Joints, Percutaneous Approach (ICD-10-PCS; 2024-08-13)
PROC: 30233N1 Transfusion of Nonautologous Red Blood Cells into Peripheral Vein, Percutaneous Approach (ICD-10-PCS; 2024-08-14)
PROC: 0LBV0ZZ Excision of Right Foot Tendon, Open Approach (ICD-10-PCS; 2024-08-18)
DX: A41.02 Sepsis due to Methicillin resistant Staphylococcus aureus (principal); E11.40 Type 2 diabetes mellitus with diabetic neuropathy, unspecified; E11.51 Type 2 diabetes mellitus with diabetic peripheral angiopathy without gangrene; E87.1 Hypo-osmolality and hyponatremia; L03.115 Cellulitis of right lower limb; E11.628 Type 2 diabetes mellitus with other skin complications; E11.610 Type 2 diabetes mellitus with diabetic neuropathic arthropathy; E11.69 Type 2 diabetes mellitus with other specified complication; E11.65 Type 2 diabetes mellitus with hyperglycemia; E66.01 Morbid (severe) obesity due to excess calories; Z68.43 Body mass index [BMI] 50.0-59.9, adult; I10 Essential (primary) hypertension; E78.5 Hyperlipidemia, unspecified; D50.9 Iron deficiency anemia, unspecified; B95.5 Unspecified streptococcus as the cause of diseases classified elsewhere; L02.611 Cutaneous abscess of right foot; K21.9 Gastro-esophageal reflux disease without esophagitis; M25.421 Effusion, right elbow; I89.0 Lymphedema, not elsewhere classified; G89.29 Other chronic pain; M25.562 Pain in left knee; H10.9 Unspecified conjunctivitis; B95.62 Methicillin resistant Staphylococcus aureus infection as the cause of diseases classified elsewhere; R19.7 Diarrhea, unspecified; B37.2 Candidiasis of skin and nail; M86.671 Other chronic osteomyelitis, right ankle and foot; E87.6 Hypokalemia; Z89.411 Acquired absence of right great toe; Z86.14 Personal history of Methicillin resistant Staphylococcus aureus infection; Z98.84 Bariatric surgery status; Z87.891 Personal history of nicotine dependence; Z79.4 Long term (current) use of insulin; Z79.899 Other long term (current) drug therapy

== ENCOUNTER 2024-09-04 18:54 | Inpatient (IN) | payer OTHER ==
[~2024-09-04] VITALS: Ht 182.9 cm; Wt 157.6 kg
[~2024-09-04 18:54] MED LIST changes: +BACTDSTA PO; +NYST10006 TOP
[2024-09-05 02:19] LABS: BASO % 0.1 % (0.0-1.0); HEMATOCRIT 26.6 % (42.0-52.0); HEMOGLOBIN 8.3 g/dl (13.5-17.5); LYMPH # 0.6 10^3/uL (1.5-5.0); LYMPH % 3.1 % (24.0-44.0); MEAN CORPUSCULAR HEMOGLOBIN 25.6 pg (27.0-33.0); MEAN CORPUSCULAR HGB CONC 31.2 g/dl (32.0-36.5); MEAN CORPUSCULAR VOLUME 82.1 fl (80.0-96.0); MONO # 1.3 10^3/uL (0.0-0.8); MONO % 6.2 % (2.0-8.0); NEUTROPHILS # 18.3 10^3/uL (1.5-8.5); NEUTROPHILS % 89.6 % (36.0-66.0); PLATELET COUNT, AUTOMATED 452 10^3/uL (150-450); RED BLOOD COUNT 3.24 10^6/uL (4.30-6.10); WHITE BLOOD COUNT 20.4 10^3/uL (4.0-10.0)
[2024-09-05] MEDS: NS (Normal Saline) 0.9% 1,000 ML IV ONE ×2 (02:28→04:18)
[2024-09-05] MEDS: ACETAMINOPHEN 325 MG TAB PO ONE (02:28)
[2024-09-05 02:34] LABS: VENOUS BASE EXCESS -3.8 (-2.0-2.0); VENOUS HCO3 19.7 MMOL/L (23.0-27.0); VENOUS O2 SATURATION 96.1 % (60.0-80.0); VENOUS PARTIAL PRESSURE CO2 29.9 mmHg (38.0-50.0); VENOUS PARTIAL PRESSURE O2 88.6 mmHg (30.0-50.0); VENOUS PH 7.437 UNITS (7.330-7.430); VENOUS STANDARD HCO3 21.3 MMOL/L; VENOUS TOTAL CO2 20.6 MMOL/L (24.0-28.0)
[2024-09-05 02:36] LABS: INR 1.41; PARTIAL THROMBOPLASTIN TIME 35.3 SECONDS (24.8-34.2); PROTHROMBIN TIME 17.5 SECONDS (12.5-14.5)
[2024-09-05 02:44] LABS: ALBUMIN 1.4 G/DL (3.2-5.2); BILIRUBIN,DIRECT 0.1 MG/DL (<0.4); BILIRUBIN,TOTAL 0.2 MG/DL (0.3-1.2); C REACTIVE PROTEIN QUANTITATIV 9.52 MG/DL (<1.0); CREATININE FOR GFR 1.7 MG/DL (0.70-1.30); GLOMERULAR FILTRATION RATE 44.4 (>56); POTASSIUM SERUM 4.1 MMOL/L (3.5-5.1); TOTAL PROTEIN 6.7 G/DL (5.7-8.2)
[2024-09-05 03:10] LABS: PROCALCITONIN 5.76 ng/ml
[2024-09-05] MEDS ORDERED: VANCOMYCIN HCL 1,000 MG, VIAL MATE ADAPTER 1 EACH in NS 250 ML IV SCH (03:15)
[2024-09-05] MEDS: PIPERACILLIN/TAZOBACTAM SOD 4.5 GM in DEXTROSE 5% (D5W) ADV/MINI-BAG 50 ML IV ONE (03:23)
[2024-09-05] MEDS ORDERED: VANCOMYCIN HCL 2,000 MG in IV FLUID PLACE HOLDER 1 EA IV ONE (03:30)
[2024-09-05] MEDS: VANCOMYCIN HCL 2,000 MG, VIAL MATE ADAPTER 1 EACH in NS 500 ML IV ONE (04:22)
[2024-09-05] MEDS ORDERED: MOM 30ML SUSPENSION UDC PO PRN (05:30)
[2024-09-05] MEDS ORDERED: GLUCAGON INJ 1MG VIAL SC PRN (05:30)
[2024-09-05] MEDS ORDERED: MAALOX 30 ML SUSP *UDC PO PRN (05:30)
[2024-09-05] MEDS ORDERED: DEXTROSE 50% 50ML SYRINGE IV PRN (05:30)
[2024-09-05] MEDS ORDERED: GLUCOSE 4 GM CHEW PO PRN (05:30)
[2024-09-05] MEDS: NS (Normal Saline) 0.9% 1,000 ML IV SCH (06:12)
[2024-09-05] MEDS: ceFAZolin SOD 2 GM in IV 1 EA IV SCH (06:12)
[2024-09-05] MEDS: DOCUSATE SODIUM 100MG CAPSULE PO SCH (08:43)
[2024-09-05] MEDS: PANTOPRAZOLE 40MG VIAL IV SCH (08:45)
[2024-09-05] MEDS: INSULIN LISPRO (NovoLOG) PER UNIT SC SCH ×2 (08:45→20:34)
[2024-09-05] MEDS ORDERED: BACTDSTA PO (08:51)
[2024-09-05] MEDS ORDERED: NYST10006 TOP (08:54)
[2024-09-05] MEDS ORDERED: HOME MED LIST COMPLETE! XX SCH (08:55)
[2024-09-05] MEDS: VANCOMYCIN HCL 1,000 MG, VIAL MATE ADAPTER 1 EACH in NS 250 ML IV SCH (11:50)
[2024-09-05] MEDS ORDERED: oxyCODONE 5MG TAB PO PRN (13:10)
[2024-09-05] MEDS: LR 1,000 ML IV SCH (13:57)
[2024-09-05 14:45] VITALS: BP 106/67; TEMP 97.8; O2SAT 98
[2024-09-05] MEDS: RIVAROXABAN 10MG TAB (XARELTO) PO SCH (17:56)
[2024-09-05 19:56] VITALS: BP 109/56; TEMP 98.2; O2SAT 99
[2024-09-05] MEDS: cefTRIAXone SOD 2 GM in DEXTROSE 5% (D5W) ADV/MINI-BAG 50 ML IV SCH (20:33)
[2024-09-05] MEDS: ACETAMINOPHEN 325 MG TAB PO PRN (20:34)
[2024-09-05] MEDS ORDERED: PROHANCE 279.3MG/ML 15ML VIAL As Ordered ONE (22:38)
[2024-09-05] MEDS ORDERED: PROHANCE 279.3MG/ML 5ML VIAL As Ordered ONE (22:38)
[2024-09-06] VITALS (10 sets, daily range): BP systolic 104–123; BP diastolic 46–79; TEMP 97.3–98.6; O2SAT 96–97
[2024-09-06 07:47] LABS: HEMATOCRIT 22.3 % (42.0-52.0); MEAN CORPUSCULAR HEMOGLOBIN 25.6 pg (27.0-33.0); MEAN CORPUSCULAR HGB CONC 30.9 g/dl (32.0-36.5); MEAN CORPUSCULAR VOLUME 82.6 fl (80.0-96.0); PLATELET COUNT, AUTOMATED 328 10^3/uL (150-450); WHITE BLOOD COUNT 8.5 10^3/uL (4.0-10.0)
[2024-09-06 07:55] LABS: HEMOGLOBIN 6.9 g/dl (13.5-17.5)
[2024-09-06 07:56] LABS: C REACTIVE PROTEIN QUANTITATIV 8.13 MG/DL (<1.0)
[2024-09-06 07:57] LABS: BLOOD UREA NITROGEN 21 MG/DL (9-23); CALCIUM LEVEL 7.4 MG/DL (8.5-10.1); CARBON DIOXIDE LEVEL 24 MMOL/L (20-31); CHLORIDE LEVEL 105 MMOL/L (98-107); CREATININE FOR GFR 1.26 MG/DL (0.70-1.30); GLOMERULAR FILTRATION RATE > 60.0 (>56); GLUCOSE, FASTING 102 MG/DL (60-100); MAGNESIUM LEVEL 1.6 MG/DL (1.8-2.4); POTASSIUM SERUM 3.6 MMOL/L (3.5-5.1); SODIUM LEVEL 137 MMOL/L (136-145)
[2024-09-06 08:01] LABS: ERYTHROCYTE SEDIMENTATION RATE 68 mm/hr (0-20)
[2024-09-06 08:08] LABS: PROCALCITONIN 5.14 ng/ml
[2024-09-06] MEDS: PANTOPRAZOLE 40MG TAB (PROTONIX) PO SCH (08:21)
[2024-09-06] MEDS: ROSUVASTATIN 10 MG TAB (CRESTOR) PO SCH (08:21)
[2024-09-06] MEDS: MAG SULF 1GM/100ML (MAG RUN) 1 GM in IV 1 EA IV SCH (08:22)
[2024-09-07 03:54] VITALS: BP 131/72; TEMP 97.5; O2SAT 97
[2024-09-07 06:08] LABS: HEMATOCRIT 23.8 % (42.0-52.0); HEMOGLOBIN 7.3 g/dl (13.5-17.5); MEAN CORPUSCULAR HEMOGLOBIN 25.4 pg (27.0-33.0); MEAN CORPUSCULAR HGB CONC 30.7 g/dl (32.0-36.5); MEAN CORPUSCULAR VOLUME 82.9 fl (80.0-96.0); PLATELET COUNT, AUTOMATED 333 10^3/uL (150-450); RED BLOOD COUNT 2.87 10^6/uL (4.30-6.10); WHITE BLOOD COUNT 6.1 10^3/uL (4.0-10.0)
[2024-09-07 06:36] LABS: C REACTIVE PROTEIN QUANTITATIV 4.98 MG/DL (<1.0)
[2024-09-07 06:37] LABS: BLOOD UREA NITROGEN 16 MG/DL (9-23); CALCIUM LEVEL 7.4 MG/DL (8.5-10.1); CARBON DIOXIDE LEVEL 24 MMOL/L (20-31); CHLORIDE LEVEL 108 MMOL/L (98-107); CREATININE FOR GFR 1.11 MG/DL (0.70-1.30); GLOMERULAR FILTRATION RATE > 60.0 (>56); GLUCOSE, FASTING 108 MG/DL (60-100); MAGNESIUM LEVEL 1.8 MG/DL (1.8-2.4); POTASSIUM SERUM 3.8 MMOL/L (3.5-5.1); SODIUM LEVEL 138 MMOL/L (136-145)
[2024-09-07 12:00] VITALS: BP 129/70; TEMP 97.7; O2SAT 97
[2024-09-07] MEDS ORDERED: ISOVUE-370 76% 100ML VIAL As Ordered ONE (17:48)
[2024-09-07] MEDS: LevoFLOXacin 750 MG TABLET PO SCH (18:38)
[2024-09-07 20:12] VITALS: BP 127/61; TEMP 97.6; O2SAT 95
[2024-09-08 03:59] VITALS: BP 124/61; TEMP 97; O2SAT 95
[2024-09-08 07:56] LABS: HEMATOCRIT 24.8 % (42.0-52.0); HEMOGLOBIN 7.3 g/dl (13.5-17.5); MEAN CORPUSCULAR HEMOGLOBIN 24.4 pg (27.0-33.0); MEAN CORPUSCULAR HGB CONC 29.4 g/dl (32.0-36.5); MEAN CORPUSCULAR VOLUME 82.9 fl (80.0-96.0); PLATELET COUNT, AUTOMATED 347 10^3/uL (150-450); RED BLOOD COUNT 2.99 10^6/uL (4.30-6.10); WHITE BLOOD COUNT 6.2 10^3/uL (4.0-10.0)
[2024-09-08 08:08] LABS: BLOOD UREA NITROGEN 12 MG/DL (9-23); CALCIUM LEVEL 7.2 MG/DL (8.5-10.1); CARBON DIOXIDE LEVEL 25 MMOL/L (20-31); CHLORIDE LEVEL 109 MMOL/L (98-107); CREATININE FOR GFR 0.95 MG/DL (0.70-1.30); GLOMERULAR FILTRATION RATE > 60.0 (>56); GLUCOSE, FASTING 130 MG/DL (60-100); MAGNESIUM LEVEL 1.8 MG/DL (1.8-2.4); POTASSIUM SERUM 3.8 MMOL/L (3.5-5.1); SODIUM LEVEL 138 MMOL/L (136-145)
[2024-09-08 12:00] VITALS: BP 125/59; TEMP 97.7; O2SAT 99
[2024-09-08 19:22] VITALS: BP 142/81; TEMP 97.7; O2SAT 97
[2024-09-08] MEDS ORDERED: PINK BISMUTH SUSP 524MG/30ML ORAL SYRINGE PO PRN (23:35)
[2024-09-09 04:03] VITALS: BP 131/66; TEMP 97.2; O2SAT 96
[2024-09-09 06:57] LABS: HEMATOCRIT 24.9 % (42.0-52.0); HEMOGLOBIN 7.5 g/dl (13.5-17.5); MEAN CORPUSCULAR HGB CONC 30.1 g/dl (32.0-36.5); PLATELET COUNT, AUTOMATED 319 10^3/uL (150-450); WHITE BLOOD COUNT 6.3 10^3/uL (4.0-10.0)
[2024-09-09 07:20] LABS: BLOOD UREA NITROGEN 11 MG/DL (9-23); C REACTIVE PROTEIN QUANTITATIV 2.59 MG/DL (<1.0); CALCIUM LEVEL 7.1 MG/DL (8.5-10.1); CARBON DIOXIDE LEVEL 24 MMOL/L (20-31); CHLORIDE LEVEL 108 MMOL/L (98-107); CREATININE FOR GFR 0.89 MG/DL (0.70-1.30); GLOMERULAR FILTRATION RATE > 60.0 (>56); GLUCOSE, FASTING 151 MG/DL (60-100); MAGNESIUM LEVEL 1.7 MG/DL (1.8-2.4); POTASSIUM SERUM 3.8 MMOL/L (3.5-5.1); SODIUM LEVEL 140 MMOL/L (136-145)
[2024-09-09 12:00] VITALS: BP 135/69; TEMP 97.9; O2SAT 96
[2024-09-09 19:35] VITALS: BP 136/76; TEMP 97.7; O2SAT 98
[2024-09-10 04:32] VITALS: BP 136/69; TEMP 97.7; O2SAT 97
[2024-09-10 06:54] LABS: HEMATOCRIT 24.9 % (42.0-52.0); HEMOGLOBIN 7.6 g/dl (13.5-17.5); MEAN CORPUSCULAR HEMOGLOBIN 25.5 pg (27.0-33.0); MEAN CORPUSCULAR HGB CONC 30.5 g/dl (32.0-36.5); MEAN CORPUSCULAR VOLUME 83.6 fl (80.0-96.0); PLATELET COUNT, AUTOMATED 355 10^3/uL (150-450); RED BLOOD COUNT 2.98 10^6/uL (4.30-6.10); WHITE BLOOD COUNT 6.1 10^3/uL (4.0-10.0)
[2024-09-10 07:22] LABS: BLOOD UREA NITROGEN 8 MG/DL (9-23); C REACTIVE PROTEIN QUANTITATIV 2.68 MG/DL (<1.0); CALCIUM LEVEL 7.2 MG/DL (8.5-10.1); CARBON DIOXIDE LEVEL 24 MMOL/L (20-31); CHLORIDE LEVEL 108 MMOL/L (98-107); CREATININE FOR GFR 0.89 MG/DL (0.70-1.30); GLOMERULAR FILTRATION RATE > 60.0 (>56); GLUCOSE, FASTING 143 MG/DL (60-100); MAGNESIUM LEVEL 1.6 MG/DL (1.8-2.4); POTASSIUM SERUM 3.8 MMOL/L (3.5-5.1); SODIUM LEVEL 140 MMOL/L (136-145)
[2024-09-10] MEDS: MAG SULF 1GM/100ML (MAG RUN) 1 GM in IV 1 EA IV SCH (08:49)
[2024-09-10 12:00] VITALS: BP 140/76; TEMP 97.7; O2SAT 96
[2024-09-10 19:54] VITALS: BP 138/76; TEMP 97.7; O2SAT 97
[2024-09-11 03:57] VITALS: BP 140/76; TEMP 97.7; O2SAT 98
[2024-09-11 06:15] LABS: HEMATOCRIT 24.3 % (42.0-52.0); HEMOGLOBIN 7.4 g/dl (13.5-17.5); MEAN CORPUSCULAR HEMOGLOBIN 24.7 pg (27.0-33.0); MEAN CORPUSCULAR HGB CONC 30.5 g/dl (32.0-36.5); MEAN CORPUSCULAR VOLUME 81.3 fl (80.0-96.0); PLATELET COUNT, AUTOMATED 323 10^3/uL (150-450); RED BLOOD COUNT 2.99 10^6/uL (4.30-6.10); WHITE BLOOD COUNT 6.1 10^3/uL (4.0-10.0)
[2024-09-11 06:51] LABS: BLOOD UREA NITROGEN 7 MG/DL (9-23); C REACTIVE PROTEIN QUANTITATIV 1.94 MG/DL (<1.0); CALCIUM LEVEL 7.3 MG/DL (8.5-10.1); CARBON DIOXIDE LEVEL 25 MMOL/L (20-31); CHLORIDE LEVEL 109 MMOL/L (98-107); CREATININE FOR GFR 0.97 MG/DL (0.70-1.30); GLOMERULAR FILTRATION RATE > 60.0 (>56); GLUCOSE, FASTING 128 MG/DL (60-100); MAGNESIUM LEVEL 1.8 MG/DL (1.8-2.4); SODIUM LEVEL 141 MMOL/L (136-145)
[2024-09-11 11:05] LABS: CLOSTRIDIUM DIFFICILE PCR NEGATIVE (NEGATIVE)
[2024-09-11 12:00] VITALS: BP 137/85; TEMP 98.1; O2SAT 98
[2024-09-11 20:13] VITALS: BP 131/72; TEMP 97.5; O2SAT 95
[2024-09-12 04:26] VITALS: BP 126/63; TEMP 97.5; O2SAT 97
[2024-09-12 06:59] LABS: HEMATOCRIT 25.5 % (42.0-52.0); HEMOGLOBIN 7.8 g/dl (13.5-17.5); MEAN CORPUSCULAR HEMOGLOBIN 25.2 pg (27.0-33.0); MEAN CORPUSCULAR HGB CONC 30.6 g/dl (32.0-36.5); MEAN CORPUSCULAR VOLUME 82.5 fl (80.0-96.0); PLATELET COUNT, AUTOMATED 319 10^3/uL (150-450); RED BLOOD COUNT 3.09 10^6/uL (4.30-6.10); WHITE BLOOD COUNT 6.8 10^3/uL (4.0-10.0)
[2024-09-12 07:19] LABS: BLOOD UREA NITROGEN 6 MG/DL (9-23); C REACTIVE PROTEIN QUANTITATIV 1.91 MG/DL (<1.0); CALCIUM LEVEL 7.2 MG/DL (8.5-10.1); CARBON DIOXIDE LEVEL 25 MMOL/L (20-31); CHLORIDE LEVEL 108 MMOL/L (98-107); CREATININE FOR GFR 0.99 MG/DL (0.70-1.30); GLOMERULAR FILTRATION RATE > 60.0 (>56); GLUCOSE, FASTING 157 MG/DL (60-100); MAGNESIUM LEVEL 1.6 MG/DL (1.8-2.4); POTASSIUM SERUM 3.5 MMOL/L (3.5-5.1); SODIUM LEVEL 140 MMOL/L (136-145)
[2024-09-12 12:00] VITALS: BP 144/77; TEMP 97.7; O2SAT 96
[2024-09-12] MEDS: POTASSIUM CHLORIDE 10MEQ SR TABLET PO ONE (12:46)
[2024-09-12] MEDS: MAG SULF 1GM/100ML (MAG RUN) 1 GM in IV 1 EA IV SCH (12:49)
[2024-09-12 20:00] VITALS: BP 143/75; TEMP 97.9; O2SAT 95
[2024-09-12 20:44] VITALS: O2SAT 95
[2024-09-13 04:00] VITALS: BP 124/59; TEMP 97.3; O2SAT 95
[2024-09-13 07:40] LABS: BASO % 0.7 % (0.0-1.0); EOS # 0.1 10^3/uL (0.0-0.5); EOS % 1.2 % (0.0-3.0); HEMATOCRIT 25.7 % (42.0-52.0); HEMOGLOBIN 7.7 g/dl (13.5-17.5); LYMPH # 1.2 10^3/uL (1.5-5.0); LYMPH % 21.8 % (24.0-44.0); MEAN CORPUSCULAR HEMOGLOBIN 24.8 pg (27.0-33.0); MEAN CORPUSCULAR VOLUME 82.6 fl (80.0-96.0); MONO # 0.5 10^3/uL (0.0-0.8); MONO % 8.2 % (2.0-8.0); NEUTROPHILS # 3.9 10^3/uL (1.5-8.5); NEUTROPHILS % 67.7 % (36.0-66.0); PLATELET COUNT, AUTOMATED 330 10^3/uL (150-450); RED BLOOD COUNT 3.11 10^6/uL (4.30-6.10); WHITE BLOOD COUNT 5.7 10^3/uL (4.0-10.0)
[2024-09-13 08:06] LABS: BLOOD UREA NITROGEN 6 MG/DL (9-23); CALCIUM LEVEL 7.3 MG/DL (8.5-10.1); CARBON DIOXIDE LEVEL 26 MMOL/L (20-31); CHLORIDE LEVEL 109 MMOL/L (98-107); CREATININE FOR GFR 1.03 MG/DL (0.70-1.30); GLOMERULAR FILTRATION RATE > 60.0 (>56); GLUCOSE, FASTING 128 MG/DL (60-100); POTASSIUM SERUM 3.8 MMOL/L (3.5-5.1); SODIUM LEVEL 141 MMOL/L (136-145)
[2024-09-13] MEDS: HEPARIN SOD (PORCINE) 5000UNITS/ML 1ML VIAL/SYRINGE SQ SCH (09:47)
[2024-09-13] MEDS: VANCOMYCIN HCL 750 MG, VIAL MATE ADAPTER 1 EACH in NS 250 ML IV SCH (11:54)
[2024-09-13 12:00] VITALS: BP 143/63; TEMP 98.1; O2SAT 94
[2024-09-13 20:00] VITALS: BP 142/73; TEMP 97.6; O2SAT 98
[2024-09-14 04:00] VITALS: BP_SYST 105; BP_SYST 148; BP_DIAS 53; BP_DIAS 91; TEMP 96.4; TEMP 98.1; O2SAT 94; O2SAT 95
[2024-09-14] MEDS ORDERED: propofoL 200 MG/20 ML VIAL As Ordered ONE (07:51)
[2024-09-14] MEDS ORDERED: LIDOCAINE 2% 100MG/5ML SDV (FOR ANES.) As Ordered ONE (07:51)
[2024-09-14] MEDS ORDERED: ONDANSETRON 4MG 2ML VIAL As Ordered ONE (07:51)
[2024-09-14] MEDS ORDERED: SUGAMMADEX SODIUM 500 MG/5 ML VIAL (BRIDION) As Ordered ONE (07:51)
[2024-09-14] MEDS ORDERED: ROCURONIUM BROMIDE 50MG/5ML VIAL As Ordered ONE (07:51)
[2024-09-14 07:57] LABS: BASO % 0.6 % (0.0-1.0); EOS # 0.1 10^3/uL (0.0-0.5); EOS % 1.1 % (0.0-3.0); HEMATOCRIT 26.2 % (42.0-52.0); LYMPH % 18.7 % (24.0-44.0); MEAN CORPUSCULAR HEMOGLOBIN 24.9 pg (27.0-33.0); MEAN CORPUSCULAR HGB CONC 30.5 g/dl (32.0-36.5); MEAN CORPUSCULAR VOLUME 81.6 fl (80.0-96.0); MONO # 0.4 10^3/uL (0.0-0.8); MONO % 8.3 % (2.0-8.0); NEUTROPHILS # 3.8 10^3/uL (1.5-8.5); NEUTROPHILS % 70.7 % (36.0-66.0); PLATELET COUNT, AUTOMATED 300 10^3/uL (150-450); RED BLOOD COUNT 3.21 10^6/uL (4.30-6.10); WHITE BLOOD COUNT 5.3 10^3/uL (4.0-10.0)
[2024-09-14] MEDS ORDERED: fentaNYL 100 MCG/2 ML INJECTION As Ordered ONE (08:00)
[2024-09-14] MEDS ORDERED: MIDAZOLAM INJ 2MG/2ML VIAL As Ordered ONE (08:00)
[2024-09-14 08:08] LABS: BLOOD UREA NITROGEN 5 MG/DL (9-23); C REACTIVE PROTEIN QUANTITATIV 1.74 MG/DL (<1.0); CALCIUM LEVEL 7.2 MG/DL (8.5-10.1); CARBON DIOXIDE LEVEL 26 MMOL/L (20-31); CHLORIDE LEVEL 109 MMOL/L (98-107); CREATININE FOR GFR 1.03 MG/DL (0.70-1.30); GLOMERULAR FILTRATION RATE > 60.0 (>56); GLUCOSE, FASTING 119 MG/DL (60-100); POTASSIUM SERUM 3.7 MMOL/L (3.5-5.1); SODIUM LEVEL 142 MMOL/L (136-145)
[2024-09-14] MEDS: ceFAZolin 1GM VIAL As Ordered ONE (10:05)
[2024-09-14] MEDS: ceFAZolin 2 GM/D5W 50 ML IV BAG As Ordered ONE (10:05)
[2024-09-14] MEDS ORDERED: ACETAMINOPHEN 1000MG/100ML IV BAG As Ordered ONE (10:11)
[2024-09-14] MEDS ORDERED: PHENYLEPHRINE 10MG/ML 1ML VIAL As Ordered ONE (10:32)
[2024-09-14] MEDS ORDERED: CALCIUM CHLORIDE 10% 1 GM/10 ML SYR As Ordered ONE (11:25)
[2024-09-14] MEDS ORDERED: ONDANSETRON 4MG 2ML VIAL IV PRN (11:40)
[2024-09-14] MEDS ORDERED: fentaNYL 100 MCG/2 ML INJECTION IV PRN (11:40)
[2024-09-14] MEDS: PHENYLEPHRINE HCL INJ 10 MG in D5W 99 ML IV SCH (12:43)
[2024-09-14] MEDS: HYDROMORPHONE HCL 0.5 MG/ 0.5 ML SYRINGE IV PRN ×2 (12:56→18:23)
[2024-09-14] MEDS: LR 1,000 ML IV ONE (13:31)
[2024-09-14] MEDS: oxyCODONE 5MG TAB PO PRN (13:37)
[2024-09-14 14:07] LABS: ALBUMIN 1.6 G/DL (3.2-5.2); ALKALINE PHOSPHATASE 83 U/L (40-129); ALT/SGPT < 9 U/L (7.0-40); AST/SGOT 11 U/L (<34); BILIRUBIN,TOTAL 0.8 MG/DL (0.3-1.2); BLOOD UREA NITROGEN 7 MG/DL (9-23); CALCIUM LEVEL 7.7 MG/DL (8.5-10.1); CARBON DIOXIDE LEVEL 23 MMOL/L (20-31); CHLORIDE LEVEL 111 MMOL/L (98-107); CREATININE FOR GFR 1.13 MG/DL (0.70-1.30); GLOMERULAR FILTRATION RATE > 60.0 (>56); GLUCOSE, FASTING 189 MG/DL (60-100); POTASSIUM SERUM 4.4 MMOL/L (3.5-5.1); SODIUM LEVEL 143 MMOL/L (136-145); TOTAL PROTEIN 5.5 G/DL (5.7-8.2)
[2024-09-14 14:11] LABS: HEMATOCRIT 32.7 % (42.0-52.0); MEAN CORPUSCULAR HEMOGLOBIN 26.6 pg (27.0-33.0); MEAN CORPUSCULAR HGB CONC 31.8 g/dl (32.0-36.5); MEAN CORPUSCULAR VOLUME 83.6 fl (80.0-96.0); PLATELET COUNT, AUTOMATED 386 10^3/uL (150-450); RED BLOOD COUNT 3.91 10^6/uL (4.30-6.10); WHITE BLOOD COUNT 13.3 10^3/uL (4.0-10.0)
[2024-09-14 14:15] LABS: HEMOGLOBIN 10.4 g/dl (13.5-17.5)
[2024-09-14 15:30] VITALS: BP 141/65; TEMP 97.3; O2SAT 99
[2024-09-14 16:07] VITALS: BP 128/60; TEMP 97.3; O2SAT 97
[2024-09-14] MEDS: ceFAZolin SOD 2 GM in IV 1 EA IV SCH (17:24)
[2024-09-14 18:35] VITALS: BP 146/67; TEMP 97.9; O2SAT 99
[2024-09-14 19:53] VITALS: BP 142/67; TEMP 98.3; O2SAT 96
[2024-09-14 20:12] LABS: BASO # 0.1 10^3/uL (0.0-0.2); BASO % 0.3 % (0.0-1.0); EOS # 0.1 10^3/uL (0.0-0.5); EOS % 0.5 % (0.0-3.0); HEMOGLOBIN 9.7 g/dl (13.5-17.5); LYMPH # 0.6 10^3/uL (1.5-5.0); LYMPH % 4.3 % (24.0-44.0); MEAN CORPUSCULAR HEMOGLOBIN 26.6 pg (27.0-33.0); MEAN CORPUSCULAR HGB CONC 32.3 g/dl (32.0-36.5); MEAN CORPUSCULAR VOLUME 82.4 fl (80.0-96.0); MONO # 0.7 10^3/uL (0.0-0.8); MONO % 4.8 % (2.0-8.0); NEUTROPHILS # 13.3 10^3/uL (1.5-8.5); NEUTROPHILS % 89.5 % (36.0-66.0); RED BLOOD COUNT 3.64 10^6/uL (4.30-6.10); WHITE BLOOD COUNT 14.9 10^3/uL (4.0-10.0)
[2024-09-14 20:16] LABS: PLATELET COUNT, AUTOMATED 277 10^3/uL (150-450)
[2024-09-14 23:46] VITALS: BP 125/67; TEMP 96.8; O2SAT 96
[2024-09-15] MEDS: VANCOMYCIN HCL 750 MG, VIAL MATE ADAPTER 1 EACH in NS 250 ML IV SCH (01:41)
[2024-09-15 03:59] VITALS: BP 126/58; TEMP 97.7; O2SAT 96
[2024-09-15 06:13] LABS: BASO % 0.4 % (0.0-1.0); EOS % 0.3 % (0.0-3.0); HEMATOCRIT 29.3 % (42.0-52.0); LYMPH # 0.7 10^3/uL (1.5-5.0); LYMPH % 7.1 % (24.0-44.0); MEAN CORPUSCULAR HGB CONC 30.7 g/dl (32.0-36.5); MEAN CORPUSCULAR VOLUME 84.7 fl (80.0-96.0); MONO # 0.9 10^3/uL (0.0-0.8); MONO % 8.4 % (2.0-8.0); NEUTROPHILS # 8.4 10^3/uL (1.5-8.5); NEUTROPHILS % 83.3 % (36.0-66.0); PLATELET COUNT, AUTOMATED 275 10^3/uL (150-450); RED BLOOD COUNT 3.46 10^6/uL (4.30-6.10); WHITE BLOOD COUNT 10.1 10^3/uL (4.0-10.0)
[2024-09-15 06:42] LABS: BLOOD UREA NITROGEN 8 MG/DL (9-23); CALCIUM LEVEL 7.5 MG/DL (8.5-10.1); CARBON DIOXIDE LEVEL 26 MMOL/L (20-31); CHLORIDE LEVEL 106 MMOL/L (98-107); CREATININE FOR GFR 1.23 MG/DL (0.70-1.30); GLOMERULAR FILTRATION RATE > 60.0 (>56); GLUCOSE, FASTING 157 MG/DL (60-100); POTASSIUM SERUM 4.3 MMOL/L (3.5-5.1); SODIUM LEVEL 139 MMOL/L (136-145)
[2024-09-15 08:00] VITALS: BP 126/59; TEMP 99.4; O2SAT 95
[2024-09-15] MEDS: PERCOCET 5MG/325MG TAB PO PRN ×2 (11:48→23:04)
[2024-09-15 13:44] VITALS: BP 124/62; TEMP 97.3; O2SAT 96
[2024-09-15 20:49] VITALS: BP 147/71; TEMP 97.5; O2SAT 98
[2024-09-16 04:07] VITALS: BP 143/71; TEMP 98.4; O2SAT 94
[2024-09-16 05:15] LABS: BASO % 0.2 % (0.0-1.0); EOS # 0.1 10^3/uL (0.0-0.5); EOS % 0.8 % (0.0-3.0); HEMATOCRIT 27.4 % (42.0-52.0); HEMOGLOBIN 8.6 g/dl (13.5-17.5); LYMPH # 0.5 10^3/uL (1.5-5.0); LYMPH % 8.7 % (24.0-44.0); MEAN CORPUSCULAR HEMOGLOBIN 26.2 pg (27.0-33.0); MEAN CORPUSCULAR HGB CONC 31.4 g/dl (32.0-36.5); MEAN CORPUSCULAR VOLUME 83.5 fl (80.0-96.0); MONO # 0.9 10^3/uL (0.0-0.8); MONO % 15.3 % (2.0-8.0); NEUTROPHILS # 4.4 10^3/uL (1.5-8.5); NEUTROPHILS % 74.5 % (36.0-66.0); PLATELET COUNT, AUTOMATED 214 10^3/uL (150-450); RED BLOOD COUNT 3.28 10^6/uL (4.30-6.10); WHITE BLOOD COUNT 5.9 10^3/uL (4.0-10.0)
[2024-09-16 05:32] LABS: BLOOD UREA NITROGEN 9 MG/DL (9-23); CALCIUM LEVEL 7.4 MG/DL (8.5-10.1); CARBON DIOXIDE LEVEL 24 MMOL/L (20-31); CHLORIDE LEVEL 107 MMOL/L (98-107); CREATININE FOR GFR 1.27 MG/DL (0.70-1.30); GLOMERULAR FILTRATION RATE > 60.0 (>56); GLUCOSE, FASTING 147 MG/DL (60-100); POTASSIUM SERUM 3.7 MMOL/L (3.5-5.1); SODIUM LEVEL 139 MMOL/L (136-145)
[2024-09-16 19:51] VITALS: BP 129/69; TEMP 98.6; O2SAT 96
[2024-09-17] MEDS ORDERED: ALBUTEROL SULFATE 2.5MG/0.5ML INH NEB SOLN NEB PRN (00:10)
[2024-09-17] MEDS: CEFEPIME HCL 2 GM in DEXTROSE 5% (D5W) ADV/MINI-BAG 50 ML IV SCH (02:16)
[2024-09-17 04:25] VITALS: BP 122/57; TEMP 97; O2SAT 96
[2024-09-17 04:44] LABS: BASO % 0.2 % (0.0-1.0); EOS % 0.5 % (0.0-3.0); HEMATOCRIT 25.1 % (42.0-52.0); HEMOGLOBIN 7.9 g/dl (13.5-17.5); LYMPH # 0.8 10^3/uL (1.5-5.0); LYMPH % 19.9 % (24.0-44.0); MEAN CORPUSCULAR HEMOGLOBIN 26.2 pg (27.0-33.0); MEAN CORPUSCULAR HGB CONC 31.5 g/dl (32.0-36.5); MEAN CORPUSCULAR VOLUME 83.4 fl (80.0-96.0); MONO # 0.9 10^3/uL (0.0-0.8); MONO % 21.3 % (2.0-8.0); NEUTROPHILS # 2.4 10^3/uL (1.5-8.5); NEUTROPHILS % 57.6 % (36.0-66.0); PLATELET COUNT, AUTOMATED 185 10^3/uL (150-450); RED BLOOD COUNT 3.01 10^6/uL (4.30-6.10); WHITE BLOOD COUNT 4.1 10^3/uL (4.0-10.0)
[2024-09-17 05:13] LABS: BLOOD UREA NITROGEN 12 MG/DL (9-23); CARBON DIOXIDE LEVEL 24 MMOL/L (20-31); CHLORIDE LEVEL 105 MMOL/L (98-107); CREATININE FOR GFR 1.22 MG/DL (0.70-1.30); GLOMERULAR FILTRATION RATE > 60.0 (>56); GLUCOSE, FASTING 120 MG/DL (60-100); POTASSIUM SERUM 3.7 MMOL/L (3.5-5.1); SODIUM LEVEL 137 MMOL/L (136-145)
[2024-09-17] MEDS: OSELTAMIVIR PHOSPHATE 75 MG CAP (TAMIFLU) PO SCH (09:04)
[2024-09-17] MEDS: ENOXAPARIN 40MG/0.4ML SYRINGE (J1650 PER 10MG) SC SCH (11:11)
[2024-09-17 12:00] VITALS: BP 128/70; TEMP 97.5; O2SAT 96
[2024-09-17 20:30] VITALS: BP 144/68; TEMP 98.1; O2SAT 95
[2024-09-18 03:30] VITALS: BP 142/70; TEMP 97.9; O2SAT 95
[2024-09-18] MEDS: DEXTROMETHORPHAN 60MG/10ML SUSP 90ML BTL(DELSYM) PO PRN (03:51)
[2024-09-18 06:53] LABS: BASO % 0.4 % (0.0-1.0); EOS # 0.1 10^3/uL (0.0-0.5); HEMATOCRIT 24.7 % (42.0-52.0); HEMOGLOBIN 7.8 g/dl (13.5-17.5); LYMPH # 0.6 10^3/uL (1.5-5.0); LYMPH % 25.7 % (24.0-44.0); MEAN CORPUSCULAR HGB CONC 31.6 g/dl (32.0-36.5); MEAN CORPUSCULAR VOLUME 82.3 fl (80.0-96.0); MONO # 0.3 10^3/uL (0.0-0.8); MONO % 12.2 % (2.0-8.0); NEUTROPHILS # 1.5 10^3/uL (1.5-8.5); NEUTROPHILS % 59.3 % (36.0-66.0); PLATELET COUNT, AUTOMATED 177 10^3/uL (150-450); WHITE BLOOD COUNT 2.5 10^3/uL (4.0-10.0)
[2024-09-18 07:22] LABS: BLOOD UREA NITROGEN 11 MG/DL (9-23); CALCIUM LEVEL 6.9 MG/DL (8.5-10.1); CARBON DIOXIDE LEVEL 25 MMOL/L (20-31); CHLORIDE LEVEL 104 MMOL/L (98-107); CREATININE FOR GFR 1.03 MG/DL (0.70-1.30); GLOMERULAR FILTRATION RATE > 60.0 (>56); GLUCOSE, FASTING 101 MG/DL (60-100); POTASSIUM SERUM 3.5 MMOL/L (3.5-5.1); SODIUM LEVEL 137 MMOL/L (136-145)
[2024-09-18 12:00] VITALS: BP 126/74; TEMP 98.1; O2SAT 91
[2024-09-18 20:10] VITALS: BP 126/73; TEMP 97.7; O2SAT 94
[2024-09-19 03:20] VITALS: BP 131/72; TEMP 97.3; O2SAT 93
[2024-09-19 08:47] LABS: BLOOD UREA NITROGEN 8 MG/DL (9-23); C REACTIVE PROTEIN QUANTITATIV 2.23 MG/DL (<1.0); CALCIUM LEVEL 7.1 MG/DL (8.5-10.1); CARBON DIOXIDE LEVEL 27 MMOL/L (20-31); CHLORIDE LEVEL 104 MMOL/L (98-107); CREATININE FOR GFR 0.91 MG/DL (0.70-1.30); GLOMERULAR FILTRATION RATE > 60.0 (>56); GLUCOSE, FASTING 101 MG/DL (60-100); POTASSIUM SERUM 3.3 MMOL/L (3.5-5.1); SODIUM LEVEL 140 MMOL/L (136-145)
[2024-09-19 09:09] LABS: BASO % 0.6 % (0.0-1.0); EOS % 0.6 % (0.0-3.0); HEMOGLOBIN 8.3 g/dl (13.5-17.5); LYMPH # 0.6 10^3/uL (1.5-5.0); LYMPH % 34.5 % (24.0-44.0); MEAN CORPUSCULAR HEMOGLOBIN 26.1 pg (27.0-33.0); MEAN CORPUSCULAR HGB CONC 31.9 g/dl (32.0-36.5); MEAN CORPUSCULAR VOLUME 81.8 fl (80.0-96.0); MONO # 0.2 10^3/uL (0.0-0.8); MONO % 11.3 % (2.0-8.0); NEUTROPHILS % 52.4 % (36.0-66.0); PLATELET COUNT, AUTOMATED 174 10^3/uL (150-450); RED BLOOD COUNT 3.18 10^6/uL (4.30-6.10); WHITE BLOOD COUNT 1.8 10^3/uL (4.0-10.0)
[2024-09-19 09:17] LABS: NEUTROPHILS # 0.9 10^3/uL (1.5-8.5)
[2024-09-19 10:22] LABS: PROCALCITONIN 0.29 ng/ml
[2024-09-19] MEDS: POTASSIUM CHLORIDE 10MEQ SR TABLET PO ONE (11:02)
[2024-09-19 12:30] VITALS: BP 131/70; TEMP 97.7; O2SAT 91
[2024-09-19] MEDS: guaiFENesin ER TABLET 600 MG TAB PO SCH (20:55)
[2024-09-20 05:19] LABS: BASO % 0.5 % (0.0-1.0); EOS % 1.9 % (0.0-3.0); HEMATOCRIT 26.3 % (42.0-52.0); HEMOGLOBIN 8.3 g/dl (13.5-17.5); LYMPH # 0.7 10^3/uL (1.5-5.0); LYMPH % 34.3 % (24.0-44.0); MEAN CORPUSCULAR HEMOGLOBIN 25.9 pg (27.0-33.0); MEAN CORPUSCULAR HGB CONC 31.6 g/dl (32.0-36.5); MEAN CORPUSCULAR VOLUME 81.9 fl (80.0-96.0); MONO # 0.2 10^3/uL (0.0-0.8); MONO % 10.5 % (2.0-8.0); NEUTROPHILS # 1.1 10^3/uL (1.5-8.5); NEUTROPHILS % 52.3 % (36.0-66.0); PLATELET COUNT, AUTOMATED 190 10^3/uL (150-450); RED BLOOD COUNT 3.21 10^6/uL (4.30-6.10); WHITE BLOOD COUNT 2.1 10^3/uL (4.0-10.0)
[2024-09-20 05:20] VITALS: BP 131/70; TEMP 97.9; O2SAT 93
[2024-09-20 05:46] LABS: BLOOD UREA NITROGEN 6 MG/DL (9-23); CALCIUM LEVEL 6.9 MG/DL (8.5-10.1); CARBON DIOXIDE LEVEL 27 MMOL/L (20-31); CHLORIDE LEVEL 107 MMOL/L (98-107); CREATININE FOR GFR 0.88 MG/DL (0.70-1.30); GLOMERULAR FILTRATION RATE > 60.0 (>56); GLUCOSE, FASTING 114 MG/DL (60-100); POTASSIUM SERUM 3.4 MMOL/L (3.5-5.1); SODIUM LEVEL 140 MMOL/L (136-145)
[2024-09-20] MEDS: FLEET ENEMA PR ONE (09:00)
[2024-09-20] MEDS: BISACODYL 10MG SUPP PR SCH (09:00)
[2024-09-20] MEDS: LACTULOSE 20GM/30ML SYRUP UDC PO SCH (09:17)
[2024-09-20] MEDS: POTASSIUM CHLORIDE 10MEQ SR TABLET PO ONE ×2 (09:18→13:04)
[2024-09-21 03:40] VITALS: BP 137/72; TEMP 97.3; O2SAT 95
[2024-09-21 05:09] LABS: HEMATOCRIT 26.7 % (42.0-52.0); HEMOGLOBIN 8.3 g/dl (13.5-17.5); MEAN CORPUSCULAR HEMOGLOBIN 25.7 pg (27.0-33.0); MEAN CORPUSCULAR HGB CONC 31.1 g/dl (32.0-36.5); MEAN CORPUSCULAR VOLUME 82.7 fl (80.0-96.0); PLATELET COUNT, AUTOMATED 182 10^3/uL (150-450); RED BLOOD COUNT 3.23 10^6/uL (4.30-6.10); WHITE BLOOD COUNT 1.7 10^3/uL (4.0-10.0)
[2024-09-21 05:41] LABS: ANISOCYTOSIS 1+; ATYPICAL LYMPH 4 % (0-5); BLOOD UREA NITROGEN 6 MG/DL (9-23); CALCIUM LEVEL 7.1 MG/DL (8.5-10.1); CARBON DIOXIDE LEVEL 28 MMOL/L (20-31); CHLORIDE LEVEL 106 MMOL/L (98-107); CREATININE FOR GFR 0.83 MG/DL (0.70-1.30); GLOMERULAR FILTRATION RATE > 60.0 (>56); GLUCOSE, FASTING 95 MG/DL (60-100); LYMPHOCYTES 32 % (16-44); MONOCYTES 13 % (0-5); NEUTROPHILS 51 % (28-66); POTASSIUM SERUM 3.4 MMOL/L (3.5-5.1); SODIUM LEVEL 141 MMOL/L (136-145)
[2024-09-21 05:42] LABS: HYPOCHROMASIA 1+; PLATELET ESTIMATE NORMAL (NORMAL)
[2024-09-21] MEDS: POTASSIUM CHLORIDE 10MEQ SR TABLET PO SCH (09:39)
[2024-09-21] MEDS ORDERED: BISACODYL 10MG SUPP PR PRN (11:15)
[2024-09-21] MEDS ORDERED: SENOKOT S TAB PO PRN (11:15)
[2024-09-22 04:14] VITALS: BP 138/76; TEMP 96.8; O2SAT 98
[2024-09-22 04:45] LABS: BASO % 0.5 % (0.0-1.0); EOS % 1.5 % (0.0-3.0); HEMATOCRIT 25.8 % (42.0-52.0); HEMOGLOBIN 8.2 g/dl (13.5-17.5); LYMPH % 53.1 % (24.0-44.0); MEAN CORPUSCULAR HEMOGLOBIN 26.1 pg (27.0-33.0); MEAN CORPUSCULAR HGB CONC 31.8 g/dl (32.0-36.5); MEAN CORPUSCULAR VOLUME 82.2 fl (80.0-96.0); MONO # 0.3 10^3/uL (0.0-0.8); MONO % 12.8 % (2.0-8.0); NEUTROPHILS % 31.6 % (36.0-66.0); PLATELET COUNT, AUTOMATED 186 10^3/uL (150-450); RED BLOOD COUNT 3.14 10^6/uL (4.30-6.10)
[2024-09-22 04:52] LABS: NEUTROPHILS # 0.6 10^3/uL (1.5-8.5)
[2024-09-22 05:11] LABS: BLOOD UREA NITROGEN 7 MG/DL (9-23); CALCIUM LEVEL 7.2 MG/DL (8.5-10.1); CARBON DIOXIDE LEVEL 28 MMOL/L (20-31); CHLORIDE LEVEL 105 MMOL/L (98-107); CREATININE FOR GFR 0.88 MG/DL (0.70-1.30); GLOMERULAR FILTRATION RATE > 60.0 (>56); GLUCOSE, FASTING 109 MG/DL (60-100); POTASSIUM SERUM 3.8 MMOL/L (3.5-5.1); SODIUM LEVEL 142 MMOL/L (136-145)
[2024-09-22] MEDS ORDERED: NYSTATIN 100,000 UNITS/GM TOPICAL PWD 15GM TOP PRN (20:25)
[2024-09-23] MEDS: NYSTATIN 100,000 UNITS/GM TOPICAL PWD 15GM TOP PRN (03:28)
[2024-09-23 03:40] VITALS: BP 145/80; TEMP 97; O2SAT 98
[2024-09-23 04:05] LABS: KETONE, URINE AUTO RFX NEGATIVE (NEGATIVE); LEUKOCYTE ESTERASE UR AUTO RFX NEGATIVE (NEGATIVE); MUCUS, URINE RFX SMALL (NEGATIVE); NITRITE, URINE AUTO RFX NEGATIVE (NEGATIVE); RBC, URINE AUTO RFX 1 /HPF (0-3); SQUAM EPITHELIAL CELL UR AURFX 0 /HPF (0-6); WBC, URINE AUTO RFX 5 /HPF (0-3)
[2024-09-23 06:07] LABS: BASO % 0.5 % (0.0-1.0); EOS % 1.4 % (0.0-3.0); HEMATOCRIT 26.7 % (42.0-52.0); HEMOGLOBIN 8.3 g/dl (13.5-17.5); LYMPH # 1.1 10^3/uL (1.5-5.0); LYMPH % 52.1 % (24.0-44.0); MEAN CORPUSCULAR HEMOGLOBIN 25.6 pg (27.0-33.0); MEAN CORPUSCULAR HGB CONC 31.1 g/dl (32.0-36.5); MEAN CORPUSCULAR VOLUME 82.4 fl (80.0-96.0); MONO # 0.3 10^3/uL (0.0-0.8); MONO % 14.4 % (2.0-8.0); NEUTROPHILS % 31.1 % (36.0-66.0); PLATELET COUNT, AUTOMATED 239 10^3/uL (150-450); RED BLOOD COUNT 3.24 10^6/uL (4.30-6.10); WHITE BLOOD COUNT 2.2 10^3/uL (4.0-10.0)
[2024-09-23 06:10] LABS: NEUTROPHILS # 0.7 10^3/uL (1.5-8.5)
[2024-09-23 06:31] LABS: BLOOD UREA NITROGEN 8 MG/DL (9-23); CALCIUM LEVEL 7.3 MG/DL (8.5-10.1); CARBON DIOXIDE LEVEL 29 MMOL/L (20-31); CHLORIDE LEVEL 105 MMOL/L (98-107); CREATININE FOR GFR 0.85 MG/DL (0.70-1.30); GLOMERULAR FILTRATION RATE > 60.0 (>56); GLUCOSE, FASTING 96 MG/DL (60-100); POTASSIUM SERUM 3.9 MMOL/L (3.5-5.1); SODIUM LEVEL 142 MMOL/L (136-145)
[2024-09-24 04:14] VITALS: BP 148/81; TEMP 97.2; O2SAT 95
[2024-09-25 04:15] VITALS: BP 148/79; TEMP 97.7; O2SAT 95
[2024-09-25 06:30] LABS: HEMATOCRIT 26.2 % (42.0-52.0); HEMOGLOBIN 8.3 g/dl (13.5-17.5); MEAN CORPUSCULAR HEMOGLOBIN 25.5 pg (27.0-33.0); MEAN CORPUSCULAR HGB CONC 31.7 g/dl (32.0-36.5); MEAN CORPUSCULAR VOLUME 80.4 fl (80.0-96.0); PLATELET COUNT, AUTOMATED 277 10^3/uL (150-450); RED BLOOD COUNT 3.26 10^6/uL (4.30-6.10); WHITE BLOOD COUNT 3.5 10^3/uL (4.0-10.0)
[2024-09-25 08:52] VITALS: TEMP 97.4
[2024-09-26 04:11] VITALS: BP 157/78; TEMP 97.5; O2SAT 95
[2024-09-26 06:52] LABS: HEMATOCRIT 27.3 % (42.0-52.0); HEMOGLOBIN 8.5 g/dl (13.5-17.5); MEAN CORPUSCULAR HEMOGLOBIN 25.2 pg (27.0-33.0); MEAN CORPUSCULAR HGB CONC 31.1 g/dl (32.0-36.5); PLATELET COUNT, AUTOMATED 294 10^3/uL (150-450); RED BLOOD COUNT 3.37 10^6/uL (4.30-6.10); WHITE BLOOD COUNT 3.5 10^3/uL (4.0-10.0)
[2024-09-26] MEDS ORDERED: FERR1TAB8 PO (11:20)
[2024-09-26] MEDS ORDERED: COLA100C5 PO (11:20)
[2024-09-26] MEDS ORDERED: MIRA3350 PO (11:20)
== END 2024-09-26 14:45 | DRG 710 ==
LOC: M ED 18:54 → M ED INP 09-05 05:27 → M MS5PR 09-05 14:45 → M PCU 09-14 14:45 → M MSPAV 09-15 13:40
PROVIDERS: ADMIT Student in an Organized Health Care Education/Training Program; ATTEND Internal Medicine
PROC: 30233N1 Transfusion of Nonautologous Red Blood Cells into Peripheral Vein, Percutaneous Approach (ICD-10-PCS; 2024-09-14)
PROC: 0Y6H0Z3 Detachment at Right Lower Leg, Low, Open Approach (ICD-10-PCS; principal; 2024-09-14 09:00)
DX: A41.9 Sepsis, unspecified organism (principal); N17.9 Acute kidney failure, unspecified; M00.871 Arthritis due to other bacteria, right ankle and foot; J12.9 Viral pneumonia, unspecified; K52.1 Toxic gastroenteritis and colitis; I95.89 Other hypotension; E11.52 Type 2 diabetes mellitus with diabetic peripheral angiopathy with gangrene; E11.40 Type 2 diabetes mellitus with diabetic neuropathy, unspecified; E11.69 Type 2 diabetes mellitus with other specified complication; E11.610 Type 2 diabetes mellitus with diabetic neuropathic arthropathy; E11.628 Type 2 diabetes mellitus with other skin complications; E66.01 Morbid (severe) obesity due to excess calories; D62 Acute posthemorrhagic anemia; T36.8X5A Adverse effect of other systemic antibiotics, initial encounter; B95.61 Methicillin susceptible Staphylococcus aureus infection as the cause of diseases classified elsewhere; J10.01 Influenza due to other identified influenza virus with the same other identified influenza virus pneumonia; M86.171 Other acute osteomyelitis, right ankle and foot; Z68.43 Body mass index [BMI] 50.0-59.9, adult; E87.1 Hypo-osmolality and hyponatremia; I10 Essential (primary) hypertension; E78.5 Hyperlipidemia, unspecified; G89.29 Other chronic pain; M54.9 Dorsalgia, unspecified; D50.9 Iron deficiency anemia, unspecified; K21.9 Gastro-esophageal reflux disease without esophagitis; Z98.84 Bariatric surgery status; Z79.4 Long term (current) use of insulin; Z79.899 Other long term (current) drug therapy; Z89.421 Acquired absence of other right toe(s)

== ENCOUNTER → 2024-10-11 | Outpatient (CLI) | payer OTHER ==
[~2024-10-11] MED LIST changes: +COLA100C5 PO; +MIRA3350 PO
== END ==
LOC: M SOG 07:53
PROVIDERS: ATTEND Physician Assistant
DX: M25.561 Pain in right knee (principal)

== ENCOUNTER 2024-11-21 11:50 | Outpatient (RCR) | payer OTHER | END 2024-11-27 | LOC: M PT 11:50 | PROVIDERS: ATTEND Orthopaedic Surgery | DX: Z89.511 Acquired absence of right leg below knee (principal); E11.610 Type 2 diabetes mellitus with diabetic neuropathic arthropathy ==